=== PATIENT | male | born 1935 | race Caucasian/White ===

== ENCOUNTER → 2017-06-28 | Outpatient (CLI) | payer MEDICARE, BC ==
--- NOTE | 2017-06-28 13:53 | XR ---
EXAMINATION TYPE: XR chest 2V DATE OF EXAM: 06/28/2017 COMPARISON: 10/20/2016 HISTORY: 81-year-old male with cough TECHNIQUE: Frontal and lateral views FINDINGS: The heart is normal size. Mild elongation of the thoracic aorta. Mild diffuse interstitial prominence has a similar appearance. Reticular densities in the lower lungs. No nguyen consolidation or pleural effusion. There is a rounded retrocardiac lucency suggesting a moderate to large hiatal hernia. There is some chronic-appearing deformity to the lower thoracic spine with focal kyphosis here. IMPRESSION: 1. Similar mild interstitial densities and reticular opacities in the lower lungs. This could represe nt underlying interstitial fibrosis. Correlate for other etiologies such as interstitial pneumonitis or atypical infections. 2. Moderate to large hiatal hernia.
== END | disposition home or self-care (01) ==
LOC: RADXRMAIN 12:55
PROVIDERS: ATTEND Internal Medicine
DX: K44.9 Diaphragmatic hernia without obstruction or gangrene (principal); R91.8 Other nonspecific abnormal finding of lung field; R05 Cough
CPT/HCPCS: 71020

== ENCOUNTER 2017-12-21 13:04 | Inpatient (IN) | payer MEDICARE, BC ==
[2017-12-21] MEDS ORDERED: DIPH,PERTUS(ACELL)TETVAC-LF 0.5 ML VIAL IM ONE (13:49)
[2017-12-21 14:47] LABS: Basophils % (A) 0 %; Eosinophils % (A) 0 %; HCT 37.5 % (39.0-53.0); HGB 12.4 gm/dL (13.0-17.5); Lymphocytes # (A) 0.8 k/uL (1.0-4.8); Lymphocytes % (A) 15 %; MCHC 32.9 g/dL (31.0-37.0); MCV 91.2 fL (80.0-100.0); Mean Platelet Volume 8.3; Monocytes # (A) 0.6 k/uL (0-1.0); Monocytes % (A) 11 %; Neutrophils # (A) 3.8 k/uL (1.3-7.7); Neutrophils % (A) 72 %; RBC 4.11 m/uL (4.30-5.90); RDW 12.9 % (11.5-15.5); WBC 5.3 k/uL (3.8-10.6)
[2017-12-21 14:51] LABS: ALT 87 U/L (21-72); AST 147 U/L (17-59); Albumin 4.2 g/dL (3.5-5.0); Alkaline Phosphatase 95 U/L (38-126); Anion Gap 15 mmol/L; Blood Urea Nitrogen 20 mg/dL (9-20); Calcium 10.3 mg/dL (8.4-10.2); Carbon Dioxide 22 mmol/L (22-30); Chloride 104 mmol/L (98-107); Glucose 98 mg/dL (74-99); Potassium 4.7 mmol/L (3.5-5.1); Sodium 141 mmol/L (137-145); Total Bilirubin 0.5 mg/dL (0.2-1.3); Total Protein 7.2 g/dL (6.3-8.2)
--- NOTE | 2017-12-21 14:54 | CT ---
EXAMINATION TYPE: CT brain wo con DATE OF EXAM: 12/21/2017 COMPARISON: NONE HISTORY: Fall today. Visual disturbance. CT DLP: 1123 mGycm Automated exposure control for dose reduction was used. FINDINGS: Changes compatible with chronic sinusitis. Mild generalized degenerative change. Faint periventricula r low attenuation is nonspecific but most typical remote microvascular ischemia. IMPRESSION: NO ACUTE HEMORRHAGE. DEGENERATIVE AND NONSPECIFIC WHITE MATTER CHANGES. IF THERE IS CONCERN FOR ACUTE ISCHEMIA CORRELATE WITH MRI.
[2017-12-21 15:14] LABS: Platelet Count 80 k/uL (150-450); Polychromasia Present
[2017-12-21] MEDS ORDERED: RX INFO: IV CONTRAST WAS GIVEN 1 EACH MISC MISCELLANE PRN (15:20)
--- NOTE | 2017-12-21 15:23 | XR ---
EXAMINATION TYPE: XR hand complete LT DATE OF EXAM: 12/21/2017 CLINICAL HISTORY: Fall injury with pain. TECHNIQUE: Frontal, lateral and oblique images of the left hand are obtained. COMPARISON: None. FINDINGS: Osseous structures are demineralized. There is no acute fracture/dislocation evident in th e left hand. There is moderate to severe joint space loss with mild spurring first interphalangeal denny int. There is some ulnar and dorsal subluxation with advanced joint space loss second DIP joint. Ther e is moderate joint space loss throughout the DIP joints. There is joint space loss and spurring dis faisal scaphoid. Focal soft tissue swelling at the DIP joints is seen. IMPRESSION: There is no acute fracture or dislocation in the left hand. Demineralization and degener ative changes as detailed above.
--- NOTE | 2017-12-21 15:26 | XR ---
EXAMINATION TYPE: XR ribs RT w pa chest xray DATE OF EXAM: 12/21/2017 CLINICAL HISTORY: Fall injury with right sided chest and rib pain. TECHNIQUE: Single frontal view of the chest is obtained. A frontal and oblique images of the right-si ded ribs are acquired. COMPARISON: None FINDINGS: There is persistent low lung volumes with reticular changes seen bilaterally more prominen t diffusely in the left lung. No suspicious new focal airspace opacity, pleural effusion, or pneumoth orax is seen. The cardiac silhouette size is stable and upper limits of normal with ectatic aorta. The osseous structures are demineralized. Dedicated images of right-sided ribs show no acute displaced fracture overlying soft tissue is unrema rkable. IMPRESSION: 1. Low lung volumes and believed chronic interstitial changes. No new suspicious acute pulmonary proc ess. 2. No acute displaced right-sided rib fractures are clearly seen.
[2017-12-21 15:40] LABS: Appearance,Urine Cloudy (Clear); Bacteria,Urine Rare /hpf; Bilirubin,Urine Negative (Negative); Blood,Urine Negative (Negative); Color,Urine Yellow; Glucose,Urine (UA) Negative (Negative); Ketones,Urine Negative (Negative); Leukocyte Esterase,Urine Large (Negative); Nitrite,Urine Negative (Negative); Protein,Urine Trace (Negative); Urobilinogen,Urine <2.0 mg/dL (<2.0); WBC,Urine 67 /hpf (0-5)
[2017-12-21] MEDS ORDERED: cefTRIAXone IN SWFI 1,000 MG/10 ML SYRINGE IVP STA (15:55)
--- NOTE | 2017-12-21 16:00 | CT ---
EXAMINATION TYPE: CT chest angio for PE DATE OF EXAM: 12/21/2017 COMPARISON: Same day chest x-ray right-sided rib x-rays HISTORY: Pain, right side mid chest CT DLP: 255.4 mGycm. Automated Exposure Control for Dose Reduction was Utilized. CONTRAST: CTA scan of the thorax is performed with IV Contrast, patient injected with 80 mL of Visipaque 320, p ulmonary embolism protocol. MIP Images are created on CT scanner and reviewed. FINDINGS: LUNGS: There is background peripheral reticulation and fibrosis with distortion seen bilaterally and diffusely involving upper and lower lungs. Honeycombing in the left lung base is present. There is no suspicious focal airspace opacity, pleural effusion, or pneumothorax seen bilaterally. MEDIASTINUM: There is satisfactory enhancement of the pulmonary artery and its branches, there is no CT evidence for pulmonary embolism. Enlarged right pulmonary artery axial image 64 is present. There are no greater than 1 cm hilar or mediastinal lymph nodes. Prominent but subcentimeter AP window lym ph nodes are present. There is small to tiny pericardial effusion. There is cardiomegaly with moderat e right atrial and right ventricular dilatation. There is large hiatal hernia or intrathoracic stomac h with abnormal twisting. There is no suspicious proximal dilatation of esophagus. There is ectatic a nd mild atherosclerotic change in the descending aorta. There is severe three-vessel coronary artery calcification seen which is noted marker for coronary artery disease. OTHER: Cholecystectomy clips are seen. Nonspecific perinephric fat stranding upper pole level right k idney is partially imaged. Osseous structures are demineralized. There is moderate anterior compressi on T11 level. There are acute nondisplaced fractures involving anterolateral right fifth rib axial im age 83, sixth rib axial image 107 and seventh rib axial image 133. IMPRESSION: 1. No CT evidence for pulmonary embolism. 2. 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 No suspicious acute pulmonary process. CT evidence for pulmonary artery hypertension and right-sided heart enlarge ment. 3. Acute nondisplaced fractures right anterolateral fifth through seventh ribs.
--- NOTE | 2017-12-21 16:04 | ED ---
General Adult HPI - General Chief complaint: Fall Stated complaint: Fall/Abd Pain Time Seen by Provider: 12/21/17 13:41 Source: patient, family, RN notes reviewed Mode of arrival: wheelchair Limitations: no limitations - History of Present Illness Initial comments: This an 82-year-old male presents emergency Department with chief complaint of near-syncope, fall rib injury. Patient states that he was outside walking states that he lost his vision is having was very blurry and he felt slightly dizzy. Patient states he and up on the ground but states he had no head injury no loss conscious. Patient states he had an episode like this in the past. Patient does admit to having some ongoing shortness of breath. Patient did admit that last year he spent several weeks in the hospital secondary to gallbladder, pneumonia and sepsis. Patient states that now he is currently having right-sided rib pain and some pain with deep inspiration. Patient also complains of abrasion, left hand injury. He is unsure when his last tetanus was. Patient denies neck, back pain. He had no prior PE or DVT. Denies any abdominal complaints denies nausea vomiting. - Related Data Home Medications Medication Instructions Recorded Confirmed Aspirin [Adult Low Dose Aspirin EC] 81 mg PO DAILY 10/13/16 12/21/17 Dicyclomine [Bentyl] 10 mg PO BID 12/21/17 12/21/17 Tamsulosin [Flomax] 0.4 mg PO HS 12/21/17 12/21/17 Allergies Allergy/AdvReac Type Severity Reaction Status Date / Time No Known Allergies Allergy Verified 12/21/17 13:39 Review of Systems ROS Statement: Those systems with pertinent positive or pertinent negative responses have been documented in the HPI. ROS Other: All systems not noted in ROS Statement are negative. 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 History of Any Multi-Drug Resistant Organisms: None Reported Past Surgical History: Adenoidectomy, Bowel Resection, Joint Replacement, Tonsillectomy Additional Past Surgical History / Comment(s): Bowel resection for cancer, RT HIP arthroplasty, EGD with bx, colonoscopy Past Anesthesia/Blood Transfusion Reactions: No Reported Reaction Past Psychological History: No Psychological Hx Reported Smoking Status: Former smoker Past Alcohol Use History: None Reported Past Drug Use History: None Reported - Past Family History Father Family Medical History: No Reported History Additional Family Medical History / Comment(s): Father was healthy and lived into his 90's. Mother Family Medical History: No Reported History Additional Family Medical History / Comment(s): Mother was healthy and lived to be 85yrs old. General Exam Limitations: no limitations General appearance: alert, in no apparent distress Head exam: Present: atraumatic, normocephalic, normal inspection Eye exam: Present: normal appearance, PERRL, EOMI. Absent: scleral icterus, conjunctival injection, periorbital swelling ENT exam: Present: normal exam, normal oropharynx, mucous membranes moist Neck exam: Present: normal inspection, full ROM. Absent: tenderness, meningismus, lymphadenopathy Respiratory exam: Present: normal lung sounds bilaterally, chest wall tenderness. Absent: respiratory distress, wheezes, rales, rhonchi, stridor Cardiovascular Exam: Present: regular rate, normal rhythm, normal heart sounds. Absent: systolic murmur, diastolic murmur, rubs, gallop, clicks GI/Abdominal exam: Present: soft, normal bowel sounds. Absent: distended, tenderness, guarding, rebound, rigid Extremities exam: Present: other (Left hand there is small abrasion just proximal to the first digit, mild tenderness full range of motion neurovascular intact remaining extremity exam within normal limits) Back exam: Present: full ROM. Absent: tenderness, muscle spasm, paraspinal tenderness Neurological exam: Present: alert, oriented X3, CN II-XII intact, reflexes normal. Absent: motor sensory deficit Skin exam: Present: warm, dry, intact, normal color. Absent: rash Course Vital Signs 12/21/17 12/21/17 13:11 16:00 Temperature 96.9 F L Pulse Rate 89 82 Respiratory 18 18 Rate Blood Pressure 104/66 129/80 O2 Sat by Pulse 100 99 Oximetry EKG Findings - EKG Comments: EKG Findings:: EKG performed at 14:15 normal sinus rhythm with prolonged QT, inverted T waves noted in V1 and V2 V3, rate of 66 RI 124, QRS 76 QT/QTc 442/463 Medical Decision Making - Medical Decision Making 82-year-old male present emergency from her for near syncope, fall. Patient is found to have multiple rib fractures on CAT scan. There is no evidence of pulmonary embolism. Patient had no head injury no neck pain. Patient had x- ray was reviewed no acute fracture. Patient be admitted for trauma services secondary to fall, pulmonology, hospitalists and anesthesia services. - Lab Data Result diagrams: 12/21/17 14:19 12/21/17 14:19 Lab Results 12/21/17 12/21/17 12/21/17 Range/Units 14:19 14:19 14:19 WBC 5.3 (3.8-10.6) k/uL RBC 4.11 L (4.30-5.90) m/uL Hgb 12.4 L (13.0-17.5) gm/dL Hct 37.5 L (39.0-53.0) % MCV 91.2 (80.0-100.0) fL MCH 30.0 (25.0-35.0) pg MCHC 32.9 (31.0-37.0) g/dL RDW 12.9 (11.5-15.5) % Plt Count 80 L (150-450) k/uL Neutrophils % 72 % Lymphocytes % 15 % Monocytes % 11 % Eosinophils % 0 % Basophils % 0 % Neutrophils # 3.8 (1.3-7.7) k/uL Lymphocytes # 0.8 L (1.0-4.8) k/uL Monocytes # 0.6 (0-1.0) k/uL Eosinophils # 0.0 (0-0.7) k/uL Basophils # 0.0 (0-0.2) k/uL Polychromasia Present D-Dimer 9.23 H (<0.60) mg/L FEU Sodium 141 (137-145) mmol/L Potassium 4.7 (3.5-5.1) mmol/L Chloride 104 (98-107) mmol/L Carbon Dioxide 22 (22-30) mmol/L Anion Gap 15 mmol/L BUN 20 (9-20) mg/dL Creatinine 1.20 (0.66-1.25) mg/dL Est GFR (MDRD) Af Amer >60 (>60 ml/min/1.73 sqM) Est GFR (MDRD) Non-Af 58 (>60 ml/min/1.73 sqM) Glucose 98 (74-99) mg/dL Calcium 10.3 H (8.4-10.2) mg/dL Magnesium 2.0 (1.6-2.3) mg/dL Total Bilirubin 0.5 (0.2-1.3) mg/dL AST 147 H (17-59) U/L ALT 87 H (21-72) U/L Alkaline Phosphatase 95 (38-126) U/L Troponin I (0.000-0.034) ng/mL Total Protein 7.2 (6.3-8.2) g/dL Albumin 4.2 (3.5-5.0) g/dL Urine Color Urine Appearance (Clear) Urine pH (5.0-8.0) Ur Specific Cornell (1.001-1.035) Urine Protein (Negative) Urine Glucose (UA) (Negative) Urine Ketones (Negative) Urine Blood (Negative) Urine Nitrite (Negative) Urine Bilirubin (Negative) Urine Urobilinogen (<2.0) mg/dL Ur Leukocyte Esterase (Negative) Urine WBC (0-5) /hpf Urine Bacteria (None) /hpf 12/21/17 12/21/17 Range/Units 14:19 15:25 WBC (3.8-10.6) k/uL RBC (4.30-5.90) m/uL Hgb (13.0-17.5) gm/dL Hct (39.0-53.0) % MCV (80.0-100.0) fL MCH (25.0-35.0) pg MCHC (31.0-37.0) g/dL RDW (11.5-15.5) % Plt Count (150-450) k/uL Neutrophils % % Lymphocytes % % Monocytes % % Eosinophils % % Basophils % % Neutrophils # (1.3-7.7) k/uL Lymphocytes # (1.0-4.8) k/uL Monocytes # (0-1.0) k/uL Eosinophils # (0-0.7) k/uL Basophils # (0-0.2) k/uL Polychromasia D-Dimer (<0.60) mg/L FEU Sodium (137-145) mmol/L Potassium (3.5-5.1) mmol/L Chloride (98-107) mmol/L Carbon Dioxide (22-30) mmol/L Anion Gap mmol/L BUN (9-20) mg/dL Creatinine (0.66-1.25) mg/dL Est GFR (MDRD) Af Amer (>60 ml/min/1.73 sqM) Est GFR (MDRD) Non-Af (>60 ml/min/1.73 sqM) Glucose (74-99) mg/dL Calcium (8.4-10.2) mg/dL Magnesium (1.6-2.3) mg/dL Total Bilirubin (0.2-1.3) mg/dL AST (17-59) U/L ALT (21-72) U/L Alkaline Phosphatase (38-126) U/L Troponin I <0.012 (0.000-0.034) ng/mL Total Protein (6.3-8.2) g/dL Albumin (3.5-5.0) g/dL Urine Color Yellow Urine Appearance Cloudy (Clear) Urine pH 8.0 (5.0-8.0) Ur Specific Cornell 1.010 (1.001-1.035) Urine Protein Trace H (Negative) Urine Glucose (UA) Negative (Negative) Urine Ketones Negative (Negative) Urine Blood Negative (Negative) Urine Nitrite Negative (Negative) Urine Bilirubin Negative (Negative) Urine Urobilinogen <2.0 (<2.0) mg/dL Ur Leukocyte Esterase Large H (Negative) Urine WBC 67 H (0-5) /hpf Urine Bacteria Rare H (None) /hpf Disposition Clinical Impression: Fall, Multiple rib fractures, UTI (urinary tract infection), Near syncope, Dizziness, Contusion of left hand Disposition: ADMITTED IP TO THIS [facility] Condition: Fair Referrals: Karin Fischer MD [Primary Care Provider] - 1-2 days
[2017-12-21] MEDS ORDERED: HYDROcodone/APAP 5-325MG 1 EACH TAB PO PRN (16:20)
[2017-12-21] MEDS ORDERED: NALOXONE 0.4 MG/ML 1 ML VIAL IV PRN (16:20)
--- NOTE | 2017-12-21 16:55 | P.GSHP ---
History of Present Illness H&P Date: 12/21/17 Chief Complaint: Fall with rib fractures The patient a 82-year-old man who presented to the emergency room after being found under the car in his garage. He had felt weak earlier in the day. He had to go down to his knees. He then went out to the garage and got light headed again and passed out. He doesn't know if he struck anything. He denies any pain in the head, abdomen, extremities. He has pain In the chest with deep breath. Denies cough or shortness of breath. He has had previous syncopal episode. He says this is the third one since he had his gallbladder surgery last fall. 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 History of Any Multi-Drug Resistant Organisms: None Reported Past Surgical History: Adenoidectomy, Bowel Resection, Joint Replacement, Tonsillectomy Additional Past Surgical History / Comment(s): Bowel resection for cancer, RT HIP arthroplasty, EGD with bx, colonoscopy Past Anesthesia/Blood Transfusion Reactions: No Reported Reaction Past Psychological History: No Psychological Hx Reported Smoking Status: Former smoker Past Alcohol Use History: None Reported Past Drug Use History: None Reported - Past Family History Father Family Medical History: No Reported History Additional Family Medical History / Comment(s): Father was healthy and lived into his 90's. Mother Family Medical History: No Reported History Additional Family Medical History / Comment(s): Mother was healthy and lived to be 85yrs old. Medications and Allergies Home Medications Medication Instructions Recorded Confirmed Type Aspirin [Adult Low Dose Aspirin EC] 81 mg PO DAILY 10/13/16 12/21/17 History Dicyclomine [Bentyl] 10 mg PO BID 12/21/17 12/21/17 History Tamsulosin [Flomax] 0.4 mg PO HS 12/21/17 12/21/17 History Allergies Allergy/AdvReac Type Severity Reaction Status Date / Time No Known Allergies Allergy Verified 12/21/17 13:39 Surgical - Exam Osteopathic Statement: *. No significant issues noted on an osteopathic structural exam other than those noted in the History and Physical/Consult. Vital Signs Temp Pulse Resp BP Pulse Ox 96.9 F L 89 18 104/66 100 12/21/17 13:11 12/21/17 13:11 12/21/17 13:11 12/21/17 13:11 12/21/17 13:11 - General well developed, well nourished, no distress - Eyes normal ocular movement - ENT normal pinna, normal nares, normal mucosa - Neck trachea midline, no lymphadectomy - Respiratory normal expansion, normal respiratory effort, clear to auscultation - Cardiovascular Rhythm: other (Occasional ectopic beat) - Abdomen Abdomen: soft, non tender, bowel sounds, no masses, no guarding, no rigid, no rebound, no distended - Integumentary Old bruise left anterior tibial region - Neurologic normal coordination, normal sensation - Psychiatric oriented to time, oriented to person, oriented to place, speech is normal, memory intact Results - Labs 12/21/17 14:19 12/21/17 14:19 Abnormal Lab Results - Last 24 Hours (Table) 12/21/17 12/21/17 12/21/17 Range/Units 14:19 14:19 14:19 RBC 4.11 L (4.30-5.90) m/uL Hgb 12.4 L (13.0-17.5) gm/dL Hct 37.5 L (39.0-53.0) % Plt Count 80 L (150-450) k/uL Lymphocytes # 0.8 L (1.0-4.8) k/uL D-Dimer 9.23 H (<0.60) mg/L FEU Calcium 10.3 H (8.4-10.2) mg/dL AST 147 H (17-59) U/L ALT 87 H (21-72) U/L Urine Protein (Negative) Ur Leukocyte Esterase (Negative) Urine WBC (0-5) /hpf Urine Bacteria (None) /hpf 12/21/17 Range/Units 15:25 RBC (4.30-5.90) m/uL Hgb (13.0-17.5) gm/dL Hct (39.0-53.0) % Plt Count (150-450) k/uL Lymphocytes # (1.0-4.8) k/uL D-Dimer (<0.60) mg/L FEU Calcium (8.4-10.2) mg/dL AST (17-59) U/L ALT (21-72) U/L Urine Protein Trace H (Negative) Ur Leukocyte Esterase Large H (Negative) Urine WBC 67 H (0-5) /hpf Urine Bacteria Rare H (None) /hpf Diabetes panel 12/21/17 Range/Units 14:19 Sodium 141 (137-145) mmol/L Potassium 4.7 (3.5-5.1) mmol/L Chloride 104 (98-107) mmol/L Carbon Dioxide 22 (22-30) mmol/L BUN 20 (9-20) mg/dL Creatinine 1.20 (0.66-1.25) mg/dL Glucose 98 (74-99) mg/dL Calcium 10.3 H (8.4-10.2) mg/dL AST 147 H (17-59) U/L ALT 87 H (21-72) U/L Alkaline Phosphatase 95 (38-126) U/L Total Protein 7.2 (6.3-8.2) g/dL Albumin 4.2 (3.5-5.0) g/dL Calcium panel 12/21/17 Range/Units 14:19 Calcium 10.3 H (8.4-10.2) mg/dL Albumin 4.2 (3.5-5.0) g/dL Pituitary panel 12/21/17 Range/Units 14:19 Sodium 141 (137-145) mmol/L Potassium 4.7 (3.5-5.1) mmol/L Chloride 104 (98-107) mmol/L Carbon Dioxide 22 (22-30) mmol/L BUN 20 (9-20) mg/dL Creatinine 1.20 (0.66-1.25) mg/dL Glucose 98 (74-99) mg/dL Calcium 10.3 H (8.4-10.2) mg/dL Adrenal panel 12/21/17 Range/Units 14:19 Sodium 141 (137-145) mmol/L Potassium 4.7 (3.5-5.1) mmol/L Chloride 104 (98-107) mmol/L Carbon Dioxide 22 (22-30) mmol/L BUN 20 (9-20) mg/dL Creatinine 1.20 (0.66-1.25) mg/dL Glucose 98 (74-99) mg/dL Calcium 10.3 H (8.4-10.2) mg/dL Total Bilirubin 0.5 (0.2-1.3) mg/dL AST 147 H (17-59) U/L ALT 87 H (21-72) U/L Alkaline Phosphatase 95 (38-126) U/L Total Protein 7.2 (6.3-8.2) g/dL Albumin 4.2 (3.5-5.0) g/dL - Imaging CT scan - chest: report reviewed Assessment and Plan (1) Fall Current Visit: Yes Status: Acute Code(s): W19.XXXA - UNSPECIFIED FALL, INITIAL ENCOUNTER SNOMED Code(s): 9305641 (2) Multiple rib fractures Current Visit: Yes Status: Acute Code(s): S22.49XA - MULTIPLE FRACTURES OF RIBS, UNSP SIDE, INIT FOR CLOS FX SNOMED Code(s): 7099266 (3) Near syncope Current Visit: Yes Status: Acute Code(s): R55 - SYNCOPE AND COLLAPSE SNOMED Code(s): 888492947 (4) UTI (urinary tract infection) Current Visit: Yes Status: Acute Code(s): N39.0 - URINARY TRACT INFECTION, SITE NOT SPECIFIED SNOMED Code(s): 71081829 Plan: Patient will be admitted. Good pulmonary toilet and pain control. Dr Fischer will see the patient from a medical standpoint. If the patient is surgically stable tomorrow, we can transfer his admission to medicine. He may need a cardiac workup due to repeated episodes of near syncope. DVT and ulcer prophylaxis. Currently surgically stable.
[2017-12-21] MEDS: KETOROLAC 30 MG/ML 1 ML VIAL IVP SCH (18:46)
[2017-12-21] MEDS: TAMSULOSIN 0.4 MG CAP.ER.24H PO SCH (21:58)
[2017-12-21] MEDS: FAMOTIDINE 20 MG TAB PO SCH (21:59)
[2017-12-22] MEDS: KETOROLAC 30 MG/ML 1 ML VIAL IVP SCH ×5 (00:28→23:45)
[2017-12-22 07:25] LABS: Basophils % (A) 0 %; Eosinophils # (A) 0.1 k/uL (0-0.7); Eosinophils % (A) 1 %; HCT 33.6 % (39.0-53.0); HGB 10.9 gm/dL (13.0-17.5); Lymphocytes % (A) 22 %; MCH 30.6 pg (25.0-35.0); MCHC 32.4 g/dL (31.0-37.0); MCV 94.4 fL (80.0-100.0); Mean Platelet Volume 8.1; Monocytes # (A) 0.5 k/uL (0-1.0); Monocytes % (A) 12 %; Neutrophils # (A) 2.8 k/uL (1.3-7.7); Neutrophils % (A) 61 %; RBC 3.56 m/uL (4.30-5.90); RDW 13.1 % (11.5-15.5); WBC 4.5 k/uL (3.8-10.6)
[2017-12-22 07:32] LABS: Platelet Count 79 k/uL (150-450)
[2017-12-22 07:35] LABS: Calcium 9.4 mg/dL (8.4-10.2); Potassium 4.6 mmol/L (3.5-5.1)
[2017-12-22] MEDS: ASPIRIN 81 MG PO SCH (08:33)
[2017-12-22] MEDS: FAMOTIDINE 20 MG TAB PO SCH (08:33)
[2017-12-22] MEDS: SODIUM CHLORIDE 0.9% 1,000 ML IV SCH ×2 (09:31→21:38)
--- NOTE | 2017-12-22 10:36 | P.PN ---
Subjective Progress Note Date: 12/22/17 Principal diagnosis: Rib fractures, syncopal episode The patient is feeling well. Has some mild pain which is controlled with pain pill. No shortness of breath. Doing well with his incentive spirometry Objective - Vital Signs Vital signs: Vital Signs Temp 98.0 F 12/22/17 07:00 Pulse 62 12/22/17 07:00 Resp 18 12/22/17 07:00 BP 108/55 12/22/17 07:00 Pulse Ox 95 12/22/17 07:00 Intake & Output 12/21/17 12/22/17 12/22/17 18:59 06:59 18:59 Intake Total 590 Output Total 300 Balance 290 Weight 71.668 kg Intake: Oral 590 Output: Urine 300 Other: Voiding Method Toilet Toilet # Voids 1 - Constitutional General appearance: Present: cooperative, no acute distress - EENT ENT: Present: hearing grossly normal - Respiratory Respiratory: bilateral: CTA, negative: wheezing - Cardiovascular Rhythm: regular - Gastrointestinal General gastrointestinal: Present: soft - Labs CBC & Chem 7: 12/22/17 06:56 12/22/17 06:56 Labs: Abnormal Lab Results - Last 24 Hours (Table) 12/21/17 12/21/17 12/21/17 Range/Units 14:19 14:19 14:19 RBC 4.11 L (4.30-5.90) m/uL Hgb 12.4 L (13.0-17.5) gm/dL Hct 37.5 L (39.0-53.0) % Plt Count 80 L (150-450) k/uL Lymphocytes # 0.8 L (1.0-4.8) k/uL D-Dimer 9.23 H (<0.60) mg/L FEU BUN (9-20) mg/dL Creatinine (0.66-1.25) mg/dL Calcium 10.3 H (8.4-10.2) mg/dL AST 147 H (17-59) U/L ALT 87 H (21-72) U/L Urine Protein (Negative) Ur Leukocyte Esterase (Negative) Urine WBC (0-5) /hpf Urine Bacteria (None) /hpf 12/21/17 12/22/17 12/22/17 Range/Units 15:25 06:56 06:56 RBC 3.56 L (4.30-5.90) m/uL Hgb 10.9 L (13.0-17.5) gm/dL Hct 33.6 L (39.0-53.0) % Plt Count 79 L (150-450) k/uL Lymphocytes # (1.0-4.8) k/uL D-Dimer (<0.60) mg/L FEU BUN 30 H (9-20) mg/dL Creatinine 1.39 H (0.66-1.25) mg/dL Calcium (8.4-10.2) mg/dL AST (17-59) U/L ALT (21-72) U/L Urine Protein Trace H (Negative) Ur Leukocyte Esterase Large H (Negative) Urine WBC 67 H (0-5) /hpf Urine Bacteria Rare H (None) /hpf Microbiology - Last 24 Hours (Table) 12/21/17 16:00 Urine Culture - Preliminary Urine,Voided Assessment and Plan (1) Fall Current Visit: Yes Status: Acute Code(s): W19.XXXA - UNSPECIFIED FALL, INITIAL ENCOUNTER SNOMED Code(s): 6136534 (2) Multiple rib fractures Current Visit: Yes Status: Acute Code(s): S22.49XA - MULTIPLE FRACTURES OF RIBS, UNSP SIDE, INIT FOR CLOS FX SNOMED Code(s): 2473443 (3) Near syncope Current Visit: Yes Status: Acute Code(s): R55 - SYNCOPE AND COLLAPSE SNOMED Code(s): 060771017 (4) UTI (urinary tract infection) Current Visit: Yes Status: Acute Code(s): N39.0 - URINARY TRACT INFECTION, SITE NOT SPECIFIED SNOMED Code(s): 63006593 Plan: From a surgical standpoint the patient's having minimal pain from the rib fractures. We'll have him continue the incentive spirometry and pain medication as needed. He is being worked up from a medical standpoint as to why he had the syncopal episode. This may be related to his urinary tract infection. The B1 increased a little bit which could be due to the IV contrast he had for his CTA of the chest yesterday. Care will be turned over to internal medicine
[2017-12-22] MEDS: DICYCLOMINE 10 MG CAP PO PRN (11:00)
--- NOTE | 2017-12-22 12:06 | US ---
EXAMINATION TYPE: US carotid duplex BILAT DATE OF EXAM: 12/22/2017 COMPARISON: NONE CLINICAL HISTORY: near syncope. Syncope EXAM MEASUREMENTS: RIGHT: Peak Systolic Velocity (PSV) cm/sec ----- Right CCA: 82.0 ----- Right ICA: 82.6 ----- Right ECA: 89.0 ICA/CCA ratio: 1.0 RIGHT: End Diastole cm/sec ----- Right CCA: 18.2 ----- Right ICA: 22.4 ----- Right ECA: 8.8 LEFT: Peak Systolic Velocity (PSV) cm/sec ----- Left CCA: 75.4 ----- Left ICA: 66.9 ----- Left ECA: 64.1 ICA/CCA ratio: 0.9 LEFT: End Diastole cm/sec ----- Left CCA: 23.7 ----- Left ICA: 23.0 ----- Left ECA: 6.2 VERTEBRALS (direction of flow): Right Vertebral: Antegrade Left Vertebral: Antegrade Rhythm: Normal Bilateral intimal thickening, no elevated velocities, no significant stenosis. IMPRESSION: 1. Mild intimal thickening without significant flow-limiting stenosis. Criteria for Assigning % of Stenosis / Diameter reduction (Estimation based on the indirect measurements of the internal carotid artery velocities (ICA PSV). 1. Normal (no stenosis)=ICA PSV < 125 cm/s: ratio < 2.0: ICA EDV<40 cm/s. 2. Less than 50% stenosis=ICA PSV < 125 cm/s: ratio < 2.0: ICA EDV<40 cm/s. 3. 50 to 69% stenosis=ICA PSV of 125 to 230 cm/s: ration 2.0 ? 4.0: ICA EDV 40-100 cm/s. 4. Greater than 70% stenosis to near occlusion= ICA PSV > 230 cm/s: ratio > 4.0: ICA EDV > 100 cm/s. 5. Near occlusion= ICA PSV velocities may be low or undetectable: variable ratio and ICA EDV. 6. Total occlusion=unable to detect flow.
--- NOTE | 2017-12-22 12:12 | P.CONS ---
History of Present Illness - Reason for Consult Consult date: 12/22/17 Medical management Requesting physician: Kari Collins - Chief Complaint Near syncopal episodes - History of Present Illness This is a 82-year-old male with a known past medical history of colon cancer with partial colectomy, BPH, and episode of nonsustained ventricle tachycardia, iron deficiency anemia. Patient presents to the hospital after having 2 near syncopal episodes. He reports that he was walking out to the mailbox and became dizzy and lightheaded and just felt weak went down to the ground on his knees and stayed there for a moment. He reports he did not fully lose consciousness. He was able to get back up and return to the garage where he proceeded to go down again. He reports he did not have lost consciousness at either time. However he felt like he was about to pass out. Therefore he came into the emergency room for further evaluation. He denies any chest pain shortness of breath heart palpitations. He states he has been eating and drinking appropriately. Denies any nausea or vomiting. Reports having regular bowel movements. Denies any burning with urination. Patient had a computed tomography scan of the brain showing no acute changes. Did reveal degenerative and nonspecific white matter changes. Patient did have elevated d-dimer admission. CT of the chest was completed showing no evidence of PE. There is moderate to severe diffuse bilateral peripheral interstitial fibrosis. No suspicious acute pulmonary process. Did show pulmonary arterial hypertension and right-sided heart enlargement. Also noted acute nondisplaced fractures of the right anterior lateral fifth through seventh ribs. Patient reports his pain is controlled. He was found have evidence of a UTI started on Rocephin in the emergency room. Patient did have a rise in his creatinine up to 1.39 and BUN 30. He'll be started on IV fluids. This could be related to the dye from the computed tomography scan. EKG shows normal sinus rhythm. Echo from August 2000 showed 17 shows an EF of 50-55% with moderate pulmonary hypertension. Cardiology has been consulted for further evaluation of this near syncopal episodes. Continue telemetry monitoring. Orthostatics have been checked. Carotid Doppler ordered. Patient was admitted initially to surgical service. 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 Gallstone pancreatitis with cholecystectomy small bowel obstruction secondary to adhesions status post exporter laparotomy with lysis of adhesions in October 2016 History of Any Multi-Drug Resistant Organisms: None Reported Past Surgical History: Adenoidectomy, Bowel Resection, Joint Replacement, Tonsillectomy Additional Past Surgical History / Comment(s): Bowel resection for cancer, RT HIP arthroplasty, EGD with bx, colonoscopy, cholecystectomy Past Anesthesia/Blood Transfusion Reactions: No Reported Reaction Past Psychological History: No Psychological Hx Reported Smoking Status: Former smoker Past Alcohol Use History: None Reported Past Drug Use History: None Reported - Past Family History Father Family Medical History: No Reported History Additional Family Medical History / Comment(s): Father was healthy and lived into his 90's. Mother Family Medical History: No Reported History Additional Family Medical History / Comment(s): Mother was healthy and lived to be 85yrs old. Medications and Allergies Home Medications Medication Instructions Recorded Confirmed Type Aspirin [Adult Low Dose Aspirin EC] 81 mg PO DAILY 10/13/16 12/21/17 History Dicyclomine [Bentyl] 10 mg PO BID PRN 12/21/17 12/21/17 History Tamsulosin [Flomax] 0.4 mg PO HS 12/21/17 12/21/17 History Allergies Allergy/AdvReac Type Severity Reaction Status Date / Time No Known Allergies Allergy Verified 12/21/17 13:39 Physical Exam Vitals: Vital Signs Temp Pulse Pulse Resp BP BP Pulse Ox 12/22/17 07:00 98.0 F 62 18 108/55 95 12/21/17 22:45 99.4 F 78 16 116/69 93 L 12/21/17 18:20 71 20 12/21/17 18:04 97.7 F 71 20 159/90 98 12/21/17 17:25 97.7 F 70 18 139/88 95 12/21/17 16:00 82 18 129/80 99 12/21/17 13:11 96.9 F L 89 18 104/66 100 Intake and Output 12/21/17 12/22/17 12/22/17 22:59 06:59 14:59 Intake Total 590 Output Total 300 Balance 290 Intake: Oral 590 Output: Urine 300 Other: Voiding Method Toilet # Voids 1 1 Head normocephalic Neck supple no carotid bruits Lungs clear to auscultation bilaterally no wheezing or crackles Heart regular rate and rhythm S1-S2, no rub or gallop no murmur Abdomen is soft nontender nondistended positive bowel sounds no hepatosplenomegaly Extremities no edema Neuro alert and orientated to 3 Results CBC & Chem 7: 12/22/17 06:56 12/22/17 06:56 Labs: Abnormal Lab Results - Last 24 Hours (Table) 12/21/17 12/21/17 12/21/17 Range/Units 14:19 14:19 14:19 RBC 4.11 L (4.30-5.90) m/uL Hgb 12.4 L (13.0-17.5) gm/dL Hct 37.5 L (39.0-53.0) % Plt Count 80 L (150-450) k/uL Lymphocytes # 0.8 L (1.0-4.8) k/uL D-Dimer 9.23 H (<0.60) mg/L FEU BUN (9-20) mg/dL Creatinine (0.66-1.25) mg/dL Calcium 10.3 H (8.4-10.2) mg/dL AST 147 H (17-59) U/L ALT 87 H (21-72) U/L Urine Protein (Negative) Ur Leukocyte Esterase (Negative) Urine WBC (0-5) /hpf Urine Bacteria (None) /hpf 12/21/17 12/22/17 12/22/17 Range/Units 15:25 06:56 06:56 RBC 3.56 L (4.30-5.90) m/uL Hgb 10.9 L (13.0-17.5) gm/dL Hct 33.6 L (39.0-53.0) % Plt Count 79 L (150-450) k/uL Lymphocytes # (1.0-4.8) k/uL D-Dimer (<0.60) mg/L FEU BUN 30 H (9-20) mg/dL Creatinine 1.39 H (0.66-1.25) mg/dL Calcium (8.4-10.2) mg/dL AST (17-59) U/L ALT (21-72) U/L Urine Protein Trace H (Negative) Ur Leukocyte Esterase Large H (Negative) Urine WBC 67 H (0-5) /hpf Urine Bacteria Rare H (None) /hpf Microbiology - Last 24 Hours (Table) 12/21/17 16:00 Urine Culture - Preliminary Urine,Voided Assessment and Plan Assessment: 1. Recurrent near syncopal episodes with falls. Computed tomography scan of the brain shows no acute changes. PE ruled out on CTA. Continue telemetry monitoring. EKG showing a normal sinus rhythm. Echo from August 2017 shows an EF of 50-55% and moderate pulmonary hypertension. Cardiology consulted. Check orthostatic blood pressures. 2. UTI: Check urine culture. Continue Rocephin 1 g daily. 3. Acute kidney injury with a creatinine up to 1.39 possibly related to the dye from computed tomography scan. We'll place patient on normal saline at 50 mL an hour. Repeat labs in a.m. 4. Elevated d-dimer on admission PE ruled out 5. CTA revealing evidence of pulmonary artery hypertension and right-sided heart enlargement and interstitial fibrosis 6. Right-sided nondisplaced rib fractures. Pain controlled 7. Anemia with known iron deficiency anemia. Hemoglobin at 10.9. Patient is currently off of his iron supplements. We'll check iron studies 8. Minimally elevated LFTs on admission. No abdominal pain. History of cholecystectomy. Repeat labs in a.m. 9. BPH continue Flomax 10. Thrombocytopenia patient's last admission August also had thrombocytopenia due to possible sepsis at that time. Platelets are 79. Repeat labs. Discontinue Pepcid and worsening thrombocytopenia SCDs for DVT prophylaxis
[2017-12-22] MEDS: cefTRIAXone IN SWFI 1,000 MG/10 ML SYRINGE IVP SCH (13:06)
--- NOTE | 2017-12-22 13:37 | P.CRDCN ---
History of Present Illness Consult date: 12/22/17 Consult reason: sycope History of present illness: Mr. Granger is a pleasant 82-year-old male past medical history significant for prostate enlargement, adenocarcinoma of the bowel with resection and chemotherapy 6 yrs ago and gastroesophageal reflux disease. He denies history of coronary artery disease and does not follow with one for any reason. We have been asked to see him in consultation for complaints of dizziness. He states he has been suffering from this multiple times in the last 6 months since having his gallbladder removed. Yesterday he was walking out to get his mail which is approximately 125ft from his house and he felt acutely dizzy with increasing shortness of breath. He lowered himself down to his knees and sat there for a moment and the dizziness passed. He continued on to get his mail and walked back up to the house and into the garage. Once he got in the garage he had another acute onset of dizziness with increased shortness of breath. This time he fell into the car and down on the ground. The dizziness past and he got up and walked into the house. He denies LOC with either event. He denies chest pain, palpitations, diaphoresis, nausea or vomiting. He was found to have non-displaced fractures of right fifth-seventh ribs. At the time of my exam he is seen sitting comfortably in bed with his at the bedside. He denies any further episodes of syncope, dizziness, shortness of breath or falls. He does feel mildly dizzy with any sort of movement however he has been mostly sitting in bed. He is currently being treated for urinary tract infection with Rocephin. EKG reveals sinus mechanism with T-wave inversions in the anterior leads. This is a new finding not represented on old EKG's. Chest xray negative for an acute cardiopulmonary process. CTA negative for PE or aortic aneurysm. Moderate to severe b/l peripheral interstitial fibrosis, pulmonary hypertension and right-sided heart enlargement. Fractures of 5-7ribs, non-displaced. Brain CT negative for acute process with chronic white matter changes. Laboratory data reviewed, hgb 10.9, plt 79, d-dimer 9.23, potassium 4.6, magnesium 2.0, BUN/Cr 30/1.39, cardiac enzymes negative x1. Current cardiac medications include aspirin 81 mg daily. Most recent echocardiogram performed August 2017 reveals preserved left ventricular function with ejection fraction 50-55%, left ventricular hypertrophy , mild aortic valve sclerosis, mild mitral regurgitation, mild to moderate tricuspid regurgitation and moderate pulmonary hypertension with an RVSP of 48.5 mmHg. Review of Systems At the time of my exam: CONSTITUTIONAL: Denies fever. Denies chills. EYES: Denies blurred vision. Denies vision changes. Denies eye pain. EARS, NOSE, MOUTH & THROAT: Denies headache. Denies sore throat. Denies ear pain. CARDIOVASCULAR: Denies chest pain. Denies shortness of breath. Denies orthopnea. Denies PND. Denies palpitations. RESPIRATORY: Denies cough. GASTROINTESTINAL: Denies abdominal pain. Denies diarrhea. Denies constipation. Denies nausea. Denies vomiting. MUSCULOSKELETAL: Denies myalgias. INTEGUMENTARY: Denies pruitis. Denies rash. NEUROLOGIC: Denies numbness. Denies tingling. Denies weakness. PSYCHIATRIC: Denies anxiety. Denies depression. ENDOCRINE: Denies fatigue. Denies weight change. Denies polydipsia. Denies polyurina. GENITOURINARY: Denies burning, hematuria or urgency with micturation. HEMATOLOGIC: Denies history of anemia. Denies bleeding. 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 Gallstone pancreatitis with cholecystectomy small bowel obstruction secondary to adhesions status post exporter laparotomy with lysis of adhesions in October 2016 History of Any Multi-Drug Resistant Organisms: None Reported Past Surgical History: Adenoidectomy, Bowel Resection, Joint Replacement, Tonsillectomy Additional Past Surgical History / Comment(s): Bowel resection for cancer, RT HIP arthroplasty, EGD with bx, colonoscopy, cholecystectomy Past Anesthesia/Blood Transfusion Reactions: No Reported Reaction Past Psychological History: No Psychological Hx Reported Smoking Status: Former smoker Past Alcohol Use History: None Reported Past Drug Use History: None Reported - Past Family History Father Family Medical History: No Reported History Additional Family Medical History / Comment(s): Father was healthy and lived into his 90's. Mother Family Medical History: No Reported History Additional Family Medical History / Comment(s): Mother was healthy and lived to be 85yrs old. Medications and Allergies Home Medications Medication Instructions Recorded Confirmed Type Aspirin [Adult Low Dose Aspirin EC] 81 mg PO DAILY 10/13/16 12/21/17 History Dicyclomine [Bentyl] 10 mg PO BID PRN 12/21/17 12/21/17 History Tamsulosin [Flomax] 0.4 mg PO HS 12/21/17 12/21/17 History Allergies Allergy/AdvReac Type Severity Reaction Status Date / Time No Known Allergies Allergy Verified 12/21/17 13:39 Physical Exam Vitals: Vital Signs Temp Pulse Pulse Resp BP BP Pulse Ox 12/22/17 07:00 98.0 F 62 18 108/55 95 12/21/17 22:45 99.4 F 78 16 116/69 93 L 12/21/17 18:20 71 20 12/21/17 18:04 97.7 F 71 20 159/90 98 12/21/17 17:25 97.7 F 70 18 139/88 95 12/21/17 16:00 82 18 129/80 99 12/21/17 13:11 96.9 F L 89 18 104/66 100 Intake and Output 12/21/17 12/22/17 12/22/17 22:59 06:59 14:59 Intake Total 590 Output Total 300 Balance 290 Intake: Oral 590 Output: Urine 300 Other: Voiding Method Toilet # Voids 1 1 Blood pressure 108/55 heart rate 62 afebrile telemetry tracings reveals sinus mechanism with no evidence of arrhythmia. GENERAL: This is a 82-year-old male in no apparent distress at the time of my examination. HEENT: Head is atraumatic, normocephalic. Pupils are equal, round. Sclerae anicteric. Conjunctivae are clear. Mucous membranes of the mouth are moist. Neck is supple. There is no jugular venous distention. No carotid bruit is heard. LUNGS: Clear to auscultation no wheezes, rales or rhonchi. No chest wall tenderness is noted on palpation or with deep breathing. HEART: Regular rate and rhythm without murmurs, rubs or gallops. S1 and S2 heard. ABDOMEN: Soft, nontender. Bowel sounds are heard. No organomegaly noted. EXTREMITIES: No evidence of peripheral edema and no calf tenderness noted. VASCULAR: Radial and dorsalis pedis pulses palpated, no evidence of clubbing. NEUROLOGIC: Patient is awake, alert and oriented x3. Results 12/22/17 06:56 12/22/17 06:56 Cardiac Enzymes 12/21/17 12/21/17 Range/Units 14:19 14:19 AST 147 H (17-59) U/L Troponin I <0.012 (0.000-0.034) ng/mL CBC 12/21/17 12/22/17 Range/Units 14:19 06:56 WBC 5.3 4.5 (3.8-10.6) k/uL RBC 4.11 L 3.56 L (4.30-5.90) m/uL Hgb 12.4 L 10.9 L (13.0-17.5) gm/dL Hct 37.5 L 33.6 L (39.0-53.0) % Plt Count 80 L 79 L (150-450) k/uL Comprehensive Metabolic Panel 12/21/17 12/22/17 Range/Units 14:19 06:56 Sodium 141 139 (137-145) mmol/L Potassium 4.7 4.6 (3.5-5.1) mmol/L Chloride 104 106 (98-107) mmol/L Carbon Dioxide 22 24 (22-30) mmol/L BUN 20 30 H (9-20) mg/dL Creatinine 1.20 1.39 H (0.66-1.25) mg/dL Glucose 98 92 (74-99) mg/dL Calcium 10.3 H 9.4 (8.4-10.2) mg/dL AST 147 H (17-59) U/L ALT 87 H (21-72) U/L Alkaline Phosphatase 95 (38-126) U/L Total Protein 7.2 (6.3-8.2) g/dL Albumin 4.2 (3.5-5.0) g/dL Current Medications Generic Name Dose Route Start Last Admin Trade Name Freq PRN Reason Stop Dose Admin Hydrocodone Bitart/Acetaminophen 1 each 12/21/17 16:20 12/21/17 17:21 [place] 5-325 PO 1 each Q4HR PRN Administration Moderate Pain Aspirin 81 mg 12/22/17 09:00 12/22/17 08:33 Aspirin PO 81 mg DAILY CLARISA Administration Ceftriaxone Sodium 1,000 mg 02/08/18 12:30 Rocephin IVP Q24HR CLARISA Dicyclomine HCl 10 mg 12/21/17 21:33 12/22/17 11:00 Bentyl PO 10 mg BID PRN Administration GI Upset Sodium Chloride 1,000 mls @ 50 mls/hr 12/22/17 09:15 12/22/17 09:31 Saline 0.9% IV 50 mls/hr .Q20H CLARISA Administration Ketorolac Tromethamine 15 mg 12/21/17 18:00 12/22/17 06:18 Toradol IVP 12/23/17 12:01 15 mg Q6HR CLARISA Administration Miscellaneous Information 1 each 12/21/17 15:20 Rx Info: Iv Contrast Was Given MISCELLANE 12/23/17 15:22 DAILY PRN Per Protocol Naloxone HCl 0.2 mg 12/21/17 16:20 Narcan IV Q2M PRN Opioid Reversal Tamsulosin HCl 0.4 mg 12/21/17 21:45 12/21/17 21:58 Flomax PO 0.4 mg HS CLARISA Administration Intake and Output 12/21/17 12/22/17 12/22/17 22:59 06:59 14:59 Intake Total 590 Output Total 300 Balance 290 Intake: Oral 590 Output: Urine 300 Other: Voiding Method Toilet # Voids 1 1 12/22/17 06:56 12/22/17 06:56 Assessment and Plan Assessment: ASSESSMENT 1. Pre-syncope with EKG changes s/p fall with injury 2. Acute dehydration with positive orthostatic changes 3. Acute kidney injury, secondary to dehydration 4. Thrombocytopenia, chronic 5. Urinary tract infection receiving IV Rocephin 6. Right 5-7 non-displaced rib fracture PLAN Repeat EKG in the morning. Repeat BMP in the morning. Continue to check serial cardiac enzymes. Obtain 2D echocardiogram and doppler study to assess cardiac structure and function. Agree with fluid replacement. Further recommendations will be based upon clinical course. Thank you kindly for this consultation. Nurse Practitioner note has been reviewed, I agree with a documented findings and plan of care. Patient was seen and examined.
--- NOTE | 2017-12-22 15:32 | P.CONS ---
History of Present Illness - Reason for Consult Consult date: 12/22/17 - History of Present Illness This is 82 years old male , was admitted to [facility] secondary to a near syncope episode, and he fell and he had multiple rib fracture, and he was complaining of severe right-sided chest wall pain, patient currently on pain medication [place] 5/325 and he is on Toradol 15 mg every, he denies any side effects of the medictions , and he reported the current regimen helping him to control his pain, cardiology consultation was requested to evaluate syncope ,and pain management consultation , was requesting regarding his chest wall pain/rip pain Past Medical History Past Medical History: Cancer, GERD/Reflux, Prostate Disorder Additional Past Medical History / Comment(s): 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 Gallstone pancreatitis with cholecystectomy small bowel obstruction secondary to adhesions status post exporter laparotomy with lysis of adhesions in October 2016 History of Any Multi-Drug Resistant Organisms: None Reported Past Surgical History: Adenoidectomy, Bowel Resection, Joint Replacement, Tonsillectomy Additional Past Surgical History / Comment(s): Bowel resection for cancer, RT HIP arthroplasty, EGD with bx, colonoscopy, cholecystectomy Past Anesthesia/Blood Transfusion Reactions: No Reported Reaction Past Psychological History: No Psychological Hx Reported Smoking Status: Former smoker Past Alcohol Use History: None Reported Past Drug Use History: None Reported - Past Family History Father Family Medical History: No Reported History Additional Family Medical History / Comment(s): Father was healthy and lived into his 90's. Mother Family Medical History: No Reported History Additional Family Medical History / Comment(s): Mother was healthy and lived to be 85yrs old. Medications and Allergies Home Medications Medication Instructions Recorded Confirmed Type Aspirin [Adult Low Dose Aspirin EC] 81 mg PO DAILY 10/13/16 12/21/17 History Dicyclomine [Bentyl] 10 mg PO BID PRN 12/21/17 12/21/17 History Tamsulosin [Flomax] 0.4 mg PO HS 12/21/17 12/21/17 History Allergies Allergy/AdvReac Type Severity Reaction Status Date / Time No Known Allergies Allergy Verified 12/21/17 13:39 Physical Exam Vitals: Vital Signs Temp Pulse Pulse Resp BP BP BP 02/08/18 14:34 98.7 F 58 L 20 12/22/17 13:13 104/66 75/54 12/22/17 07:00 98.0 F 62 18 12/21/17 22:45 99.4 F 78 16 12/21/17 18:20 71 20 12/21/17 18:04 97.7 F 71 20 12/21/17 17:25 97.7 F 70 18 139/88 12/21/17 16:00 82 18 129/80 BP BP Pulse Ox 12/22/17 14:34 99/55 95 12/22/17 13:13 109/64 12/22/17 07:00 108/55 95 12/21/17 22:45 116/69 93 L 12/21/17 18:20 12/21/17 18:04 159/90 98 12/21/17 17:25 95 12/21/17 16:00 99 Intake and Output 12/22/17 12/22/17 12/22/17 06:59 14:59 22:59 Other: # Voids 1 3 Physical Examinations : 1-Constitutional : Cooperative , not in acute distress . 2-HEENT : nech ; supple , no Lymphadenopathy , no Thyromegaly , :eyes , no icterus, no photophobia . ENT : , normal oropharynx , no Thrush 3- Respiratory : Chest clear to auscultations Bilaterally , no wheezing . 4- Cardiovascular : regular rate and rhythem , S1 , S2 , no S3 , no S4. Tenderness over the right side of the chest 5- Gastrointestinal: abdomen soft no tenderness , no organomegally . 6- Genitourinary : Defferred . 7-Integumentary : No cellulitis , no ulcers , normal skin turgor , no cyanotic . 8- neurologic : Cranial nerve II to XII intact , no focal neurological deffecit 9-psychatric : alert , oriented X 3 , appropriate affect , intact judgment and insight . 10-Lymphatic : no Lymphadenopathy. 11- musculoskeltal: Lumber spine moter stegnth lower extremities ,thigh and legs 5/5 Right side , 5/5 Left side Results CBC & Chem 7: 12/22/17 06:56 12/22/17 06:56 Labs: Abnormal Lab Results - Last 24 Hours (Table) 12/21/17 12/22/17 12/22/17 Range/Units 15:25 06:56 06:56 RBC 3.56 L (4.30-5.90) m/uL Hgb 10.9 L (13.0-17.5) gm/dL Hct 33.6 L (39.0-53.0) % Plt Count 79 L (150-450) k/uL BUN 30 H (9-20) mg/dL Creatinine 1.39 H (0.66-1.25) mg/dL Urine Protein Trace H (Negative) Ur Leukocyte Esterase Large H (Negative) Urine WBC 67 H (0-5) /hpf Urine Bacteria Rare H (None) /hpf Microbiology - Last 24 Hours (Table) 12/21/17 16:00 Urine Culture - Preliminary Urine,Voided Assessment and Plan Plan: Assessment AND PLAN= acute chest wall pain, secondary to rib fractures, pain managed well with the current regimen recommend continue the current medication , recommend change Toradol IV to Motrin 600 mg every 8 hours before discharge Time with Patient: Greater than 30
[2017-12-22 17:18] LABS: Iron Saturation 34.35 (15.00-50.00)
--- NOTE | 2017-12-22 17:19 | ECHOF ---
Referral Reason:htn MEASUREMENTS -------- HEIGHT: 177.8 cm WEIGHT: 71.7 kg BP: 108/55 RVIDd: 3.8 cm (< 3.3) IVSd: 1.1 cm (0.6 - 1.1) LVIDd: 3.5 cm (3.9 - 5.3) LVPWd: 1.1 cm (0.6 - 1.1) IVSs: 1.6 cm LVIDs: 2.8 cm LVPWs: 1.3 cm Ao Diam: 3.4 cm (2.0 - 3.7) AV Cusp: 1.6 cm (1.5 - 2.6) EPSS: 0.6 cm MV E Jerman: 0.96 m/s MV DecT: 380 ms MV A Jerman: 0.99 m/s MV E/A Ratio: 0.97 RAP: 5.00 mmHg RVSP: 58.32 mmHg MV EF SLOPE: 39.60 mm/s (70 - 150) MV EXCURSION: 1.87 cm (> 18.000) FINDINGS -------- Sinus rhythm. This was a technically adequate study. The left ventricular size is normal. There is borderline concentric left ventricular hypertrophy. Overall left ventricular systolic function is normal with, an EF between 55 - 60 %. The right ventricle is mild to moderately enlarged. The left atrial size is normal. The right atrium is normal in size. Aortic valve is trileaflet and is mildly thickened. The mitral valve leaflets are mildly thickened. Mild mitral regurgitation is present. Mild tricuspid regurgitation present. There is moderate pulmonary hypertension. The right ventric ular systolic pressure, as measured by Doppler, is 58.32mmHg. Trace/mild (physiologic) pulmonic regurgitation. The aortic root size is normal. IVC Not well visulized. There is no pericardial effusion. CONCLUSIONS -------- 1. Sinus rhythm. 2. This was a technically adequate study. 3. The left ventricular size is normal. 4. There is borderline concentric left ventricular hypertrophy. 5. Overall left ventricular systolic function is normal with, an EF between 55 - 60 %. 6. The right ventricle is mild to moderately enlarged. 7. The left atrial size is normal. 8. Aortic valve is trileaflet and is mildly thickened. 9. The mitral valve leaflets are mildly thickened. 10. Mild mitral regurgitation is present. 11. Mild tricuspid regurgitation present. 12. There is moderate pulmonary hypertension. 13. Trace/mild (physiologic) pulmonic regurgitation. 14. The aortic root size is normal. 15. IVC Not well visulized. 16. There is no pericardial effusion. SSRS DEVELOPER: Juvenal Campos RDCS
--- NOTE | 2017-12-22 17:47 | P.CNPUL ---
History of Present Illness Consult date: 12/22/17 Reason for consult: chest pain Chief complaint: Chest pain, rib fractures History of present illness: Patient seen and evaluated examined in the medical floor patient does have some complaint of chest pain on the left side after the fall he described his been having near syncopal episode for the last several week last episode was a few days ago prior to that was 2 weeks ago this time he fell down while he was walking, he lost his vision is having was very blurry and he felt slightly dizzy. Patient states he and up on the ground but states he had no head injury no loss conscious. Patient states he had an episode like this in the past. Patient does admit to having some ongoing shortness of breath. Patient did admit that last year he spent several weeks in the hospital secondary to gallbladder, pneumonia and sepsis. Patient states that now he is currently having right-sided rib pain and some pain with deep inspiration. Patient also complains of abrasion, left hand injury. He is unsure when his last tetanus was. Patient denies neck, back pain. Further workup and evaluation revealed suspicious rib fractures on the right side, however chest x-ray and dedicated rib x-rays failed to reveal, computed tomography scan of the chest revealed pulmonary fibrosis bilaterally with honeycombing, and large right-sided PA vasculature noted cardiomegaly with a right atrial and right ventricular dilatation suggestive of pulmonary hypertension, compression fracture at T11 was noted as well, computed tomography scan however revealed right fifth to seventh rib fracture no PE was noted a red echocardiogram revealed moderate pulmonary hypertension however adequate ejection fraction of 55%, duplex ultrasound of carotid failed to reveal any significant stenosis at the roommate' s changes were noted Review of Systems All systems: negative Past Medical History Past Medical History: Cancer, GERD/Reflux, Prostate Disorder Additional Past Medical History / Comment(s): 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 Gallstone pancreatitis with cholecystectomy small bowel obstruction secondary to adhesions status post exporter laparotomy with lysis of adhesions in October 2016 History of Any Multi-Drug Resistant Organisms: None Reported Past Surgical History: Adenoidectomy, Bowel Resection, Joint Replacement, Tonsillectomy Additional Past Surgical History / Comment(s): Bowel resection for cancer, RT HIP arthroplasty, EGD with bx, colonoscopy, cholecystectomy Past Anesthesia/Blood Transfusion Reactions: No Reported Reaction Past Psychological History: No Psychological Hx Reported Smoking Status: Former smoker Past Alcohol Use History: None Reported Past Drug Use History: None Reported - Past Family History Father Family Medical History: No Reported History Additional Family Medical History / Comment(s): Father was healthy and lived into his 90's. Mother Family Medical History: No Reported History Additional Family Medical History / Comment(s): Mother was healthy and lived to be 85yrs old. Medications and Allergies Home Medications Medication Instructions Recorded Confirmed Type Aspirin [Adult Low Dose Aspirin EC] 81 mg PO DAILY 10/13/16 12/21/17 History Dicyclomine [Bentyl] 10 mg PO BID PRN 12/21/17 12/21/17 History Tamsulosin [Flomax] 0.4 mg PO HS 12/21/17 12/21/17 History Allergies Allergy/AdvReac Type Severity Reaction Status Date / Time No Known Allergies Allergy Verified 12/21/17 13:39 Physical Exam Vitals: Vital Signs Temp Pulse Resp BP BP BP BP 12/22/17 14:34 98.7 F 58 L 20 99/55 12/22/17 13:13 104/66 75/54 109/64 12/22/17 07:00 98.0 F 62 18 108/55 12/21/17 22:45 99.4 F 78 16 116/69 12/21/17 18:20 71 20 12/21/17 18:04 97.7 F 71 20 159/90 Pulse Ox 12/22/17 14:34 95 12/22/17 13:13 12/22/17 07:00 95 12/21/17 22:45 93 L 12/21/17 18:20 12/21/17 18:04 98 Intake and Output 12/22/17 12/22/17 12/22/17 06:59 14:59 22:59 Other: # Voids 1 3 Limitations: no limitations General appearance: alert, in no apparent distress Head exam: Present: atraumatic, normocephalic, normal inspection Eye exam: Present: normal appearance, PERRL, EOMI. Absent: scleral icterus, conjunctival injection, periorbital swelling ENT exam: Present: normal exam, normal oropharynx, mucous membranes moist Neck exam: Present: normal inspection, full ROM. Absent: tenderness, meningismus, lymphadenopathy Respiratory exam: Present: normal lung sounds bilaterally, chest wall tenderness. Absent: respiratory distress, wheezes, rales, rhonchi, stridor Cardiovascular Exam: Present: regular rate, normal rhythm, normal heart sounds. Absent: systolic murmur, diastolic murmur, rubs, gallop, clicks GI/Abdominal exam: Present: soft, normal bowel sounds. Absent: distended, tenderness, guarding, rebound, rigid Extremities exam: Present: other (Left hand there is small abrasion just proximal to the first digit, mild tenderness full range of motion neurovascular intact remaining extremity exam within normal limits) Back exam: Present: full ROM. Absent: tenderness, muscle spasm, paraspinal tenderness Neurological exam: Present: alert, oriented X3, CN II-XII intact, reflexes normal. Absent: motor sensory deficit Skin exam: Present: warm, dry, intact, normal color. Absent: rash Results - Laboratory Findings CBC and BMP: 12/22/17 06:56 12/22/17 06:56 PT/INR, D-dimer D-Dimer 9.23 mg/L FEU (<0.60) H 12/21/17 14:19 Abnormal lab findings: Abnormal Labs 12/21/17 12/21/17 12/21/17 14:19 14:19 14:19 RBC 4.11 L Hgb 12.4 L Hct 37.5 L Plt Count 80 L Lymphocytes # 0.8 L D-Dimer 9.23 H BUN Creatinine Calcium 10.3 H AST 147 H ALT 87 H Urine Protein Ur Leukocyte Esterase Urine WBC Urine Bacteria 12/21/17 12/22/17 12/22/17 15:25 06:56 06:56 RBC 3.56 L Hgb 10.9 L Hct 33.6 L Plt Count 79 L Lymphocytes # D-Dimer BUN 30 H Creatinine 1.39 H Calcium AST ALT Urine Protein Trace H Ur Leukocyte Esterase Large H Urine WBC 67 H Urine Bacteria Rare H - Diagnostic Findings Chest x-ray: report reviewed, image reviewed CT scan - chest: report reviewed, image reviewed (As noted above) Assessment and Plan Assessment: Status post fall with right 56 and seventh rib fracture Pulmonary contusion versus pneumonia right-sided UTI Chronic thrombocytopenia 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 Moderate pulmonary hypertension likely related to above Suspect ongoing intermittent chronic hypoxia patient would require nocturnal pulse oximetry and maybe supplemental oxygen Near syncope of unclear etiology 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 Plan: Gentle rehydration for correction of BUN/creatinine Evaluate patient for nocturnal desaturation and possibly home O2 Agree with IV Rocephin for now however if patient remains afebrile and white cell count remains normal can be stopped next 24 hours patient can be switched to oral antibiotics for UTI to finish 5-7 day therapy Further evaluation of pulmonary fibrosis and intervention on outpatient setting Maintain patient on DVT and peptic ulcer disease prophylaxis Suspect will be hypertension is related to pulmonary fibrosis we'll monitor and observe for now Time with Patient: Greater than 30
[2017-12-22 18:47] VITALS: RESP 16
[2017-12-22] MEDS: TAMSULOSIN 0.4 MG CAP.ER.24H PO SCH (20:14)
[2017-12-23] MEDS: DICYCLOMINE 10 MG CAP PO PRN (01:24)
[2017-12-23] MEDS: KETOROLAC 30 MG/ML 1 ML VIAL IVP SCH (05:18)
[2017-12-23] MEDS: SODIUM CHLORIDE 0.9% 1,000 ML IV SCH ×2 (05:19→09:11)
[2017-12-23 07:52] LABS: Basophils % (A) 0 %; Eosinophils # (A) 0.1 k/uL (0-0.7); Eosinophils % (A) 3 %; HCT 31.1 % (39.0-53.0); HGB 9.9 gm/dL (13.0-17.5); Lymphocytes # (A) 0.9 k/uL (1.0-4.8); Lymphocytes % (A) 25 %; MCH 29.5 pg (25.0-35.0); MCHC 31.8 g/dL (31.0-37.0); MCV 92.9 fL (80.0-100.0); Mean Platelet Volume 8.6; Monocytes # (A) 0.4 k/uL (0-1.0); Monocytes % (A) 10 %; Neutrophils # (A) 2.1 k/uL (1.3-7.7); Neutrophils % (A) 58 %; RBC 3.35 m/uL (4.30-5.90); RDW 13.2 % (11.5-15.5); WBC 3.6 k/uL (3.8-10.6)
[2017-12-23 08:04] VITALS: BP 115/72; PULSE 60; TEMP 97.5
[2017-12-23 08:14] LABS: ALT 51 U/L (21-72); AST 45 U/L (17-59); Alkaline Phosphatase 71 U/L (38-126); Anion Gap 9 mmol/L; Blood Urea Nitrogen 27 mg/dL (9-20); Calcium 8.6 mg/dL (8.4-10.2); Carbon Dioxide 22 mmol/L (22-30); Chloride 110 mmol/L (98-107); Glucose 89 mg/dL (74-99); Potassium 4.6 mmol/L (3.5-5.1); Sodium 141 mmol/L (137-145); Total Bilirubin 0.4 mg/dL (0.2-1.3); Total Protein 5.7 g/dL (6.3-8.2)
[2017-12-23 08:16] LABS: Platelet Count 60 k/uL (150-450)
[2017-12-23] MEDS: ASPIRIN 81 MG PO SCH (09:11)
[2017-12-23] MEDS: cefTRIAXone IN SWFI 1,000 MG/10 ML SYRINGE IVP SCH (09:11)
--- NOTE | 2017-12-23 12:01 | P.PN ---
Progress Note - Text Progress Note Date: 12/23/17 The patient is surgically stable. Will transfer admission to Dr Fischer. I spoke with Dr Fischer on the phone and he accepts the patient
--- NOTE | 2017-12-23 12:13 | P.PN ---
Subjective Progress Note Date: 12/23/17 Mr. Granger is seen and examined today resting comfortably in bed. He is in no acute distress. He denies having had any symptoms of dizziness, near syncope or syncope. He complains only of tight thoracic pain secondary to rib fractures. Telemetry tracings have been unremarkable with no evidence of arrhythmia. Repeat EKG this morning again shows T-wave inversions in anterior leads. Cardiac enzymes were unremarkable. Echocardiogram shows preserved LV function with EF 55-60% with mild to moderate RV, mildly thickened aortic valve, mildly thickened mitral valve and moderate pulmonary hypertension. Yesterday he was orthostatic positive and received IV fluids, repeat orthostatics were negative last night. Potassium 4.6, creatinine 1.3, hemoglobin 9.9. Objective - Vital Signs Vital signs: Vital Signs Temp 97.5 F L 12/23/17 07:00 Pulse 60 12/23/17 07:00 Resp 16 12/23/17 07:00 BP 115/72 12/23/17 07:00 Pulse Ox 96 12/23/17 07:00 Intake & Output 12/22/17 12/23/17 12/23/17 18:59 06:59 18:59 Intake Total 2089 Balance 2089 Intake: Intake, IV Titration 1500 Amount Sodium Chloride 0.9% 1, 1500 000 ml @ 125 mls/hr IV . [facility] Rx#:[id number] Oral 590 Other: Voiding Method Toilet Toilet Toilet # Voids 3 2 - Exam Blood pressure 115/72 heart rate 68 afebrile GENERAL: Well-appearing, well-nourished and in no acute distress. NECK: Supple without JVD or thyromegaly. LUNGS: Breath sounds clear to auscultation bilaterally. Respiration equal and unlabored. No wheezes, rales or rhonchi. HEART: Regular rate and rhythm without murmurs, rubs or gallops. S1 and S2 heard. EXTREMITIES: Normal range of motion, no edema. No clubbing or cyanosis. Peripheral pulses intact and strong. - Labs CBC & Chem 7: 12/23/17 07:11 12/23/17 07:11 Labs: Abnormal Lab Results - Last 24 Hours (Table) 12/22/17 12/23/17 12/23/17 Range/Units 06:56 07:11 07:11 WBC 3.6 L (3.8-10.6) k/uL RBC 3.35 L (4.30-5.90) m/uL Hgb 9.9 L (13.0-17.5) gm/dL Hct 31.1 L (39.0-53.0) % Plt Count 60 L (150-450) k/uL Lymphocytes # 0.9 L (1.0-4.8) k/uL Chloride 110 H (98-107) mmol/L BUN 27 H (9-20) mg/dL Creatinine 1.33 H (0.66-1.25) mg/dL Ferritin 21.9 L (22.0-322.0) ng/mL Total Protein 5.7 L (6.3-8.2) g/dL Albumin 3.0 L (3.5-5.0) g/dL Microbiology - Last 24 Hours (Table) 12/21/17 16:00 Urine Culture - Final Urine,Voided Assessment and Plan Assessment: ASSESSMENT 1. Pre-syncope with EKG changes s/p fall with injury 2. Acute dehydration with positive orthostatic changes, resolved 3. Acute kidney injury, secondary to dehydration. Improving. 4. Thrombocytopenia, chronic 5. Urinary tract infection receiving IV Rocephin 6. Right 5-7 non-displaced rib fracture PLAN Mr. Granger is stable from a cardiac perspective. He will be set-up for stress testing as an outpatient. This appointment has been made for Dec 29 at 0715 and follow-up with Dr. Mcadams Jan 02 at 0900. At that time ongoing discussion regarding possible loop recorder implant if stress testing is negative. Nurse Practitioner note has been reviewed, I agree with a documented findings and plan of care. Patient was seen and examined.
--- NOTE | 2017-12-23 13:02 | P.DS ---
Providers Date of admission: 12/23/17 08:38 Expected date of discharge: 12/23/17 Attending physician: Kari Collins Consults: 12/21/17 16:20 Consult Physician Stat Consulting Provider: Rai Álvarez Consult Reason/Comments: Multiple rib fracture, shortness breath Do you want consulting provider notified?: Yes Consult Physician Stat Consulting Provider: Karin Fischer Consult Reason/Comments: medical management - Fall, near-syncope, multiple rib fractures right side, Do you want consulting provider notified?: Yes 12/21/17 16:24 Consult Physician Urgent Consulting Provider: Anesthesia,Services Consult Reason/Comments: pain management Do you want consulting provider notified?: Yes 12/22/17 10:54 Consult Physician Routine Consulting Provider: Charan Tolbert Consult Reason/Comments: near syncope Do you want consulting provider notified?: Yes Primary care physician: Karin Fischer [facility] Course: Diagnoses on discharge: 1. Recurrent near syncopal episodes with falls. Computed tomography scan of the brain shows no acute changes. PE ruled out on CTA. Continue telemetry monitoring. EKG showing a normal sinus rhythm. Echo from August 2017 shows an EF of 50-55% and moderate pulmonary hypertension. Cardiology consulted. Check orthostatic blood pressures. 2. UTI: Check urine culture. Continue Rocephin 1 g daily. 3. Acute kidney injury with a creatinine up to 1.39 possibly related to the dye from computed tomography scan. We'll place patient on normal saline at 50 mL an hour. Repeat labs in a.m. 4. Elevated d-dimer on admission PE ruled out 5. CTA revealing evidence of pulmonary artery hypertension and right-sided heart enlargement and interstitial fibrosis 6. Right-sided nondisplaced rib fractures. Pain controlled 7. Anemia with known iron deficiency anemia. Hemoglobin at 10.9. Patient is currently off of his iron supplements. We'll check iron studies 8. Minimally elevated LFTs on admission. No abdominal pain. History of cholecystectomy. Repeat labs in a.m. 9. BPH continue Flomax 10. Thrombocytopenia patient's last admission August also had thrombocytopenia due to possible sepsis at that time. Platelets are 79. Hospital course: This is a 82-year-old male with a known past medical history of colon cancer with partial colectomy, BPH, and episode of nonsustained ventricle tachycardia, iron deficiency anemia. Patient presents to the hospital after having 2 near syncopal episodes. He reports that he was walking out to the mailbox and became dizzy and lightheaded and just felt weak went down to the ground on his knees and stayed there for a moment. He reports he did not fully lose consciousness. He was able to get back up and return to the garage where he proceeded to go down again. He reports he did not have lost consciousness at either time. However he felt like he was about to pass out. Therefore he came into the emergency room for further evaluation. He denies any chest pain shortness of breath heart palpitations. He states he has been eating and drinking appropriately. Denies any nausea or vomiting. Reports having regular bowel movements. Denies any burning with urination. Patient had a computed tomography scan of the brain showing no acute changes. Did reveal degenerative and nonspecific white matter changes. Patient did have elevated d-dimer admission. CT of the chest was completed showing no evidence of PE. There is moderate to severe diffuse bilateral peripheral interstitial fibrosis. No suspicious acute pulmonary process. Did show pulmonary arterial hypertension and right-sided heart enlargement. Also noted acute nondisplaced fractures of the right anterior lateral fifth through seventh ribs. Patient reports his pain is controlled. He was found have evidence of a UTI started on Rocephin in the emergency room. Patient did have a rise in his creatinine up to 1.39 and BUN 30. He'll be started on IV fluids. This could be related to the dye from the computed tomography scan. EKG shows normal sinus rhythm. Echo from August 2000 showed 17 shows an EF of 50-55% with moderate pulmonary hypertension. Cardiology has been consulted for further evaluation of this near syncopal episodes. Continue telemetry monitoring. Orthostatics have been checked. Carotid Doppler ordered. Patient was admitted initially to surgical service. on 12/23/2017 patient is alert and oriented 3 he is feeling better he was able to ambulate without difficulty and without any dizziness or feeling of presyncope, he was evaluated by cardiology echo cardiogram revealed evidence of [id number] pulmonary hypertension, carotid Doppler was negative for any significant stenosis, patient was cleared by cardiology for discharge, he will be followed by cardiology as outpatient for stress test and possible loop recorder, Will follow up in our office in 1-2 weeks Patient Condition at Discharge: Fair Plan - Discharge Summary New Discharge Prescriptions: New Cefuroxime Axetil [Ceftin] 500 mg PO BID #10 tab HYDROcodone/APAP 5-325MG [Bonifay 5-325] 1 each PO Q4HR PRN tab PRN Reason: Moderate Pain Continue Aspirin [Adult Low Dose Aspirin EC] 81 mg PO DAILY Tamsulosin [Flomax] 0.4 mg PO HS Dicyclomine [Bentyl] 10 mg PO BID PRN PRN Reason: Gi Upset Discharge Medication List Aspirin [Adult Low Dose Aspirin EC] 81 mg PO DAILY 10/13/16 [History] Dicyclomine [Bentyl] 10 mg PO BID PRN 12/21/17 [History] Tamsulosin [Flomax] 0.4 mg PO HS 12/21/17 [History] Cefuroxime Axetil [Ceftin] 500 mg PO BID #10 tab 12/23/17 [Rx] HYDROcodone/APAP 5-325MG [Bonifay 5-325] 1 each PO Q4HR PRN tab 12/23/17 [Rx] Follow up Appointment(s)/Referral(s): Mark Mcadams MD [STAFF PHYSICIAN] - 1 Week (Lexiscan stress test scheduled Dec 29 at 715 am. Nothing to eat after midnight Tuesday. Appointment with Dr. Mcadams Jan 02 at 9 am. The office will call with instructions for stress test. ) Karin Fischer MD [Primary Care Provider] - 1-2 days
== END 2017-12-23 17:04 | disposition home or self-care (01) | DRG 184 ==
LOC: EC 13:04 → 3OBS 16:11 → 5MS5E 17:16 → OBSVTOIN 12-23 08:38
PROVIDERS: ADMIT Surgery; ATTEND Surgery
DX: S22.41XA Multiple fractures of ribs, right side, initial encounter for closed fracture (principal); N17.9 Acute kidney failure, unspecified; D69.6 Thrombocytopenia, unspecified; I27.21 Secondary pulmonary arterial hypertension; I08.3 Combined rheumatic disorders of mitral, aortic and tricuspid valves; J84.10 Pulmonary fibrosis, unspecified; N39.0 Urinary tract infection, site not specified; I95.1 Orthostatic hypotension; E86.0 Dehydration; R79.1 Abnormal coagulation profile; S60.222A Contusion of left hand, initial encounter; D50.9 Iron deficiency anemia, unspecified; K21.9 Gastro-esophageal reflux disease without esophagitis; N40.0 Benign prostatic hyperplasia without lower urinary tract symptoms; T50.8X5A Adverse effect of diagnostic agents, initial encounter; Z85.038 Personal history of other malignant neoplasm of large intestine; Z90.89 Acquired absence of other organs; Z86.12 Personal history of poliomyelitis; Z90.49 Acquired absence of other specified parts of digestive tract; Z79.82 Long term (current) use of aspirin; Z87.891 Personal history of nicotine dependence; Z92.21 Personal history of antineoplastic chemotherapy; Z96.641 Presence of right artificial hip joint; W19.XXXA Unspecified fall, initial encounter
CPT/HCPCS: 36415; 70450; 71275; 80048; 80053; 81001; 82728; 83540; 83550; 83735; 84484; 85025; 85379; 87086; 90471; 90715; 93005; 93306; 93880; 96374; 99285

== ENCOUNTER → 2018-06-28 | Outpatient (CLI) | payer BC, MEDICARE ==
--- NOTE | 2018-06-28 17:42 | CT ---
EXAMINATION TYPE: CT ChestAbdPelvis w con DATE OF EXAM: 06/28/2018 INDICATION: Colon CA COMPARISON: 08/19/2017 CT abdomen pelvis, CTA chest 12/21/2017 CT DLP: 872.6 mGycm CONTRAST: Performed with Oral Contrast and with IV Contrast, patient injected with 100 mL of Isovue 300. TECHNIQUE: Axial images at 5 mm thick sections. Reconstructed images in the coronal plane. Delayed images through the kidneys. FINDINGS: CT CHEST: Portion of the thyroid visualized is normal. No suspicious lung nodules or focal infiltrates are present. Emphysematous changes are present. No enlarged mediastinal or hilar adenopathy is evident. The ascending aorta diameter at the level of the main pulmonary artery is 3.5 cm. The main pulmonary artery diameter at the bifurcation is 2.9 cm. There is a large hiatal hernia containing contrast. Aorta is tortuous. CT ABDOMEN: Liver: Normal Spleen: Normal Pancreas: Normal Adrenal glands: The adrenal glands are normal. Gallbladder: Not identified. Correlate with surgical history. This could be contracted or surgically absent. Kidneys: No masses are evident. No hydronephrosis is present. No cysts are present. Delayed images were obtained through the kidneys, which remain unremarkable. Aorta: Vascular calcification is within the aorta. Inferior vena cava: Normal. CT PELVIS: Loops of bowel within the abdomen and pelvis are normal. There are loops of bowel which are incom pletely distended or lack oral contrast limiting their evaluation. Fecal debris is within the colon. Anastomosis site is not identified. Appendix: Normal as visualized. Urinary bladder: Normal. Genitourinary structures: Prostate is prominent. Osseous structures: No suspicious lytic or sclerotic lesions. There is a right hip prosthesis. Facet degenerative changes are present within the lumbar spine. IMPRESSIONS: 1. No suspicious changes to suggest recurrent or metastatic colon. 2. Large hiatal hernia.
== END | disposition home or self-care (01) ==
LOC: RADCTMAIN 10:56
PROVIDERS: ATTEND Internal Medicine Hematology & Oncology
DX: Z03.89 Encounter for observation for other suspected diseases and conditions ruled out (principal); C18.7 Malignant neoplasm of sigmoid colon; K44.9 Diaphragmatic hernia without obstruction or gangrene
CPT/HCPCS: 82565; 84520; 71260; 74177; 36415; Q9967

== ENCOUNTER 2018-08-04 06:45 | Day surgery (SDC) | payer MEDICARE ==
[2018-08-03 09:41] VITALS: BMI 21.5
[~2018-08-04 06:45] MED LIST: LACTATED RINGERS 1,000 ML IV SCH; LIDOCAINE 1% 20 ML VIAL (10MG/ML) FOR IV START INTRADERMA PRN
[2018-08-04 07:11] VITALS: RESP 16; TEMP 97.8
[2018-08-04] MEDS ORDERED: PROPOFOL 10 MG/ML 20 ML VIAL IV ONE (07:40)
--- NOTE | 2018-08-04 07:42 | P.GSHP ---
History of Present Illness H&P Date: 08/04/18 Chief Complaint: Screening, history of colon cancer 82-year-old male with history of previous colon resection for cancer by Dr. Christy. Recently was found have a slightly elevated CEA level. Last colonoscopy 2-3 years ago. No bowel complaints. Some chronic nausea. 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 Gallstone pancreatitis with cholecystectomy small bowel obstruction secondary to adhesions status post exploratory laparotomy with lysis of adhesions in October 2016 History of Any Multi-Drug Resistant Organisms: None Reported Past Surgical History: Adenoidectomy, Bowel Resection, Cholecystectomy, Joint Replacement, Tonsillectomy Additional Past Surgical History / Comment(s): Bowel resection for cancer, RT HIP arthroplasty, EGD with bx, colonoscopy Past Anesthesia/Blood Transfusion Reactions: No Reported Reaction Smoking Status: Former smoker - Past Family History Father Family Medical History: No Reported History Additional Family Medical History / Comment(s): Father was healthy and lived into his 90's. Mother Family Medical History: No Reported History Additional Family Medical History / Comment(s): Mother was healthy and lived to be 85yrs old. Medications and Allergies Home Medications Medication Instructions Recorded Confirmed Type Aspirin [Adult Low Dose Aspirin EC] 81 mg PO DAILY 10/13/16 08/04/18 History Tamsulosin [Flomax] 0.4 mg PO HS 12/21/17 08/04/18 History Stomach Pill-Namedose Unknown 1 each PO DAILY 08/03/18 08/04/18 History Allergies Allergy/AdvReac Type Severity Reaction Status Date / Time No Known Allergies Allergy Verified 08/04/18 07:14 Surgical - Exam Vital Signs Temp Pulse Resp BP Pulse Ox 97.8 F 88 16 145/93 96 08/04/18 07:10 08/04/18 07:10 08/04/18 07:10 08/04/18 07:10 08/04/18 07:10 Physical exam: General: Well-developed, well-nourished HEENT: Normocephalic, sclerae nonicteric Abdomen: Nontender, nondistended Extremities: No edema Neuro: Alert and oriented Assessment and Plan (1) Colon cancer screening Narrative/Plan: Will proceed with colonoscopy at this time. Current Visit: Yes Status: Acute Code(s): Z12.11 - ENCOUNTER FOR SCREENING FOR MALIGNANT NEOPLASM OF COLON SNOMED Code(s): 361913141
--- NOTE | 2018-08-04 07:59 | P.PCN ---
Date of Procedure: 08/04/18 Procedure(s) Performed: PREOPERATIVE DIAGNOSIS: Colon cancer screening POSTOPERATIVE DIAGNOSIS: Rectal polyp, diverticulosis PROCEDURE: Colonoscopy with snare polypectomy ANESTHESIA: MAC SURGEON: Wong Don M.D. SPECIMENS: Rectal polyp ENDOSCOPIC PROCEDURE: The patient was placed on the endoscopy table in the left decubitus position. The Olympus colonoscope was inserted into the anus and passed under direct visualization to the base of the cecum. The appendiceal orifice was visualized. From that point the scope was slowly withdrawn inspecting all surfaces carefully. There were no neoplastic inflammatory or polypoid lesions throughout the cecum, ascending, transverse, descending, and sigmoid colon. In the proximal rectum at 20 cm a small sessile polyp was identified and removed using the snare with cautery technique. The snare came through the polyp before the cautery was utilized however. A small area of bleeding was controlled using the tip of the snare cautery. No further bleeding was seen at that time. Mild diverticulosis was seen throughout the colon. The exact site of previous colonic resection was not visualized. Digital rectal examination was normal. The patient was taken to the recovery room in stable condition per anesthesia guidelines. RECOMMENDATIONS: Await biopsy results.
[2018-08-04 08:44] VITALS: BP 125/84; PULSE 62
== END 2018-08-04 08:57 | disposition home or self-care (01) ==
LOC: ORWHC2ENDO 06:45
PROVIDERS: ATTEND Surgery
DX: Z12.11 Encounter for screening for malignant neoplasm of colon (principal); D12.8 Benign neoplasm of rectum; K21.9 Gastro-esophageal reflux disease without esophagitis; N40.0 Benign prostatic hyperplasia without lower urinary tract symptoms; K57.30 Diverticulosis of large intestine without perforation or abscess without bleeding; Z79.82 Long term (current) use of aspirin; Z85.038 Personal history of other malignant neoplasm of large intestine; Z87.891 Personal history of nicotine dependence; Z96.641 Presence of right artificial hip joint; Z90.49 Acquired absence of other specified parts of digestive tract; Z92.21 Personal history of antineoplastic chemotherapy; Z79.899 Other long term (current) drug therapy
CPT/HCPCS: 88305; 45385; J2704

== ENCOUNTER 2018-08-24 10:27 | Day surgery (SDC) | payer MEDICARE ==
[2018-08-22 14:28] VITALS: BMI 22.6
[~2018-08-24 10:27] MED LIST changes: -LIDOCAINE 1% 20 ML VIAL (10MG/ML) FOR IV START INTRADERMA PRN
[2018-08-24] MEDS ORDERED: LIDOCAINE 1% 20 ML VIAL (10MG/ML) FOR IV START INTRADERMA ONE (11:03)
[2018-08-24 11:07] VITALS: TEMP 97.9
[2018-08-24] MEDS ORDERED: LIDOCAINE 1% INJ 10MG/ML (20 ML MDV) ONE (12:21)
[2018-08-24] MEDS ORDERED: PROPOFOL 10 MG/ML 20 ML VIAL IV ONE (12:21)
--- NOTE | 2018-08-24 12:26 | P.GSHP ---
History of Present Illness H&P Date: 08/24/18 Chief Complaint: Anemia Patient here today for upper endoscopy. Patient with a diagnosis of iron deficiency anemia. Recent colonoscopy in July showed a small polyp without a source of his anemia identified. Denies rectal bleeding, no melena. 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 small bowel obstruction History of Any Multi-Drug Resistant Organisms: None Reported Past Surgical History: Adenoidectomy, Bowel Resection, Cholecystectomy, Joint Replacement, Tonsillectomy Additional Past Surgical History / Comment(s): Bowel resection, RT HIP replacement, Past Anesthesia/Blood Transfusion Reactions: No Reported Reaction Smoking Status: Former smoker - Past Family History Father Family Medical History: No Reported History Additional Family Medical History / Comment(s): Father was healthy and lived into his 90's. Mother Family Medical History: No Reported History Additional Family Medical History / Comment(s): . Medications and Allergies Home Medications Medication Instructions Recorded Confirmed Type Tamsulosin [Flomax] 0.4 mg PO HS 12/21/17 08/24/18 History Dicyclomine [Bentyl] 10 mg PO BID 08/22/18 08/24/18 History Ferrous Sulfate [Feosol] 325 mg PO DAILY 08/22/18 08/24/18 History Pantoprazole Sodium 40 mg PO BID 08/22/18 08/24/18 History Allergies Allergy/AdvReac Type Severity Reaction Status Date / Time No Known Allergies Allergy Verified 08/24/18 10:58 Surgical - Exam Vital Signs Temp Pulse Resp BP Pulse Ox 97.9 F 78 18 117/72 97 08/24/18 11:06 08/24/18 11:06 08/24/18 11:06 08/24/18 11:06 08/24/18 11:06 Physical exam: General: Well-developed, well-nourished HEENT: Normocephalic, sclerae nonicteric Abdomen: Nontender, nondistended Extremities: No edema Neuro: Alert and oriented Assessment and Plan (1) Anemia Narrative/Plan: Will proceed with upper endoscopy. Current Visit: No Status: Acute Code(s): D64.9 - ANEMIA, UNSPECIFIED SNOMED Code(s): 472703406
--- NOTE | 2018-08-24 12:33 | P.PCN ---
Date of Procedure: 08/24/18 Procedure(s) Performed: Preoperative Dx: Anemia Postoperative Dx: Gastritis, moderate to large sized hiatal hernia Procedure: EGD with Bx Anesthesia: Sedation Endoscopist: Dr. Don Specimens: Antrum Endoscopic Procedure: The patient was on the endoscopy table in the left decubitus position. The Olympus gastroscope was inserted into the oropharynx and passed under direct visualization to the region of the third portion of the duodenum. From that point the scope was slowly withdrawn inspecting all surfaces carefully. There were no neoplastic inflammatory or polypoid lesions throughout the duodenum. The pylorus was widely patent. The stomach was carefully inspected. There was minimal gastritis present. A biopsy of the antrum took place to rule out H. pylori. Retroflexion revealed a moderate to large sized hiatal hernia. The GE junction was present 6-7 cm proximal to the diaphragmatic hiatus. Despite the large size of this hernia there was no inflammatory changes to suggest a source of anemia. The remainder of the esophagus appeared normal although slightly tortuous. The patient was then taken to the recovery room in stable condition per anesthesia guidelines. Recommendations: Await biopsy results. Continue anemia workup.
[2018-08-24 13:01] VITALS: BP 123/82; PULSE 64; RESP 14
== END 2018-08-24 13:15 | disposition home or self-care (01) ==
LOC: ORWHC2ENDO 10:27
PROVIDERS: ATTEND Surgery
DX: K29.50 Unspecified chronic gastritis without bleeding (principal); K44.9 Diaphragmatic hernia without obstruction or gangrene; K21.9 Gastro-esophageal reflux disease without esophagitis; Z85.038 Personal history of other malignant neoplasm of large intestine; Z92.21 Personal history of antineoplastic chemotherapy; Z98.0 Intestinal bypass and anastomosis status; Z79.899 Other long term (current) drug therapy; Z87.891 Personal history of nicotine dependence
CPT/HCPCS: 88305; 43239; J2001; J2704

== ENCOUNTER → 2018-09-05 | Outpatient (CLI) | payer MEDICARE, BC ==
--- NOTE | 2018-09-05 17:29 | US ---
EXAMINATION TYPE: US kidneys/renal and bladder DATE OF EXAM: 09/05/2018 COMPARISON: Ultrasound abdomen 08/19/2017, CT 06/28/2018 CLINICAL HISTORY: R35.0 Urinary Frequency R30.9 Pain with Urination UTI per patient. EXAM MEASUREMENTS: Right Kidney: 10.0 x 4.4 x 4.4 cm Left Kidney: 10.0 x 4.2 x 5.3 cm Post Void Residual Volume: 367.1 mL Right Kidney: No hydronephrosis or masses seen Left Kidney: No hydronephrosis; upper pole simple cortical cyst seen = 1.9 x 1.5 x 2.0cm Bladder: multiple bladder wall diverticuli; posterior internal mobile echoes seen (debris); enlarged prostate is noted Bilateral Jets seen: yes Normal Post Void Residual: no, as is > 50.0ml Kidneys show normal cortical medullary differentiation. Renal cyst left kidney shows increased throug h transmission, imperceptible wall and is anechoic. IMPRESSION: Findings compatible with chronic bladder outlet obstruction. Debris present within the bladder, prost ate is enlarged. Elevated post void residual volume. Simple cyst left kidney
== END | disposition home or self-care (01) ==
LOC: RADUSWWP 15:52
PROVIDERS: ATTEND Internal Medicine
DX: N40.0 Benign prostatic hyperplasia without lower urinary tract symptoms (principal); N28.1 Cyst of kidney, acquired; R39.89 Other symptoms and signs involving the genitourinary system
CPT/HCPCS: 76770

== ENCOUNTER → 2019-06-19 | Outpatient (CLI) | payer MEDICARE, BC ==
--- NOTE | 2019-06-19 10:40 | US ---
EXAMINATION TYPE: US abdomen complete DATE OF EXAM: 06/19/2019 COMPARISON: NONE CLINICAL HISTORY: D69.59 THROMBOCYTOPENIA. Patient states no symptoms, history of cholecystectomy EXAM MEASUREMENTS: Liver Length: 14.7 cm Gallbladder Wall: surgically absent CBD: 0.3 cm Spleen: 10.8 cm Right Kidney: 9.7 x 5.0 x 4.4 cm Left Kidney: 10.2 x 4.4 x 5.3 cm Pancreas: limited visualization Liver: wnl Gallbladder: surgically absent Evidence for sonographic Mejia's sign: no CBD: visualized portion wnl, limited by overlying bowel gas Spleen: wnl Right Kidney: wnl Left Kidney: 2.5 x 1.8 x 1.7cm superior pole Upper IVC: wnl Abd Aorta: proximal portion obscured by overlying midline bowel gas, mid and distal portion wnl The liver is homogenous. The intrahepatic portion of the IVC and proximal abdominal aorta are within normal limits. There is no evidence of cholelithiasis. Common bile duct is unremarkable. The visu alized portions of the pancreas are homogenous. The spleen is unremarkable. Kidneys are symmetric a nd free of hydronephrosis. No suspicious renal lesions are seen. IMPRESSION: 1. No evidence of splenomegaly in this patient with thrombocytopenia. 2. Simple appearing (Bosniak type I) benign left renal cyst of the superior pole. 3. Limited evaluation of the aorta and pancreas, partially obscured by overlying bowel gas.
== END | disposition home or self-care (01) ==
LOC: RADUSWWP 09:35
PROVIDERS: ATTEND Internal Medicine Hematology & Oncology
DX: D69.6 Thrombocytopenia, unspecified (principal); N28.1 Cyst of kidney, acquired; R14.3 Flatulence; D69.59 Other secondary thrombocytopenia
CPT/HCPCS: 76700

== ENCOUNTER → 2020-05-13 | Outpatient (CLI) | payer MEDICARE ==
--- NOTE | 2020-05-13 16:17 | CT ---
EXAMINATION TYPE: CT abdomen pelvis w con DATE OF EXAM: 05/13/2020 COMPARISON: 06/28/2018 HISTORY: 84-year-old male R10.84, generalized abdominal pain. Epigastric to periumbilical pain TECHNIQUE: Contiguous axial scanning of the abdomen and pelvis following administration of 80 ml Isov ue 300 IV contrast. Delayed images through the kidneys and coronal/sagittal reconstructions performe d. CT DLP: 442.4 mGycm Automated exposure control for dose reduction was used. FINDINGS: Heart normal size with trace pericardial fluid. Scattered coronary artery calcifications are present. Extensive emphysematous and fibrotic changes in the lower lungs. 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 Large hiatal hernia containing two thirds of the stomach. Ectatic and tortuous lower descending thora cic aorta measuring 2.7 cm. No focal liver lesion or biliary ductal dilatation. Portal venous system is patent. Some lobulated pancreatic tissue measuring 1.1 cm along the anterior margin of the pancreatic head, a xial image 22, unchanged from 06/28/2018. Cholecystectomy clips. Adrenal glands, right kidney, spleen, and pancreas otherwise appear within normal limits. A new parapelvic cyst in the left kidney measuring 2.4 cm. Borderline ectasia infrarenal abdominal aorta at 2.5 cm. Ectatic right and left common iliac arteries measuring up to 1.6 cm. No mesenteric or retroperitoneal lymphadenopathy. No dilated small bowel, free fluid, or free air. Oral contrast progressed to the distal third transverse colon. Mild overall stool burden. Generalized colonic diverticulosis, greatest in the left side of the colon. No pericolonic inflammatory change s een. There is a staple line at the rectosigmoid junction from prior resection and reanastomosis. Severely trabeculated and thick-walled bladder. There is prominent distention of the urinary bladder filling the pelvis measuring 12.0 cm AP and 10.5 cm wide. There is wedge-shaped defect extending into the prostate gland along the base of the bladder, suspect ed prior TURP. Prostate gland measures 5.0 cm wide. No abnormal fluid collection in the pelvis or pelvic lymphadenopathy. Prominent metal artifact relating to the patient's right hip total arthroplasty limiting visualizatio n of the pelvic structures. Mild degenerative change of the left hip. Anterior wedging deformity at T11 appears chronic. Accentua marylou thoracic kyphosis at this level. Stable trace grade 1 anterolisthesis at L3-L4. IMPRESSION: 1. COPD AND FIBROTIC CHANGES AT THE VISUALIZED LUNG BASES, POSSIBLE UIP PATTERN OF LUNG INJURY. 2. LARGE HIATAL HERNIA REDEMONSTRATED CONTAINING TWO THIRDS OF THE STOMACH. 3. GENERALIZED COLONIC DIVERTICULOSIS, GREATEST DISTALLY. NO EVIDENCE FOR ACUTE DIVERTICULITIS. PRIOR DISTAL COLON RESECTION AND REANASTOMOSIS AT THE RECTOSIGMOID JUNCTION. 4. PROSTATOMEGALY OF 5.0 CM WIDE WITH PRIOR TURP. THERE IS SEVERE TRABECULATED THICKENING OF THE BLAD JAVED WALL IN KEEPING WITH CHRONIC BLADDER OUTLET OBSTRUCTION. CLINICALLY CORRELATE.
== END | disposition home or self-care (01) ==
LOC: RADCTMAIN 11:20
PROVIDERS: ATTEND Internal Medicine
DX: K44.9 Diaphragmatic hernia without obstruction or gangrene (principal); K57.30 Diverticulosis of large intestine without perforation or abscess without bleeding; N40.0 Benign prostatic hyperplasia without lower urinary tract symptoms; J44.9 Chronic obstructive pulmonary disease, unspecified; N32.0 Bladder-neck obstruction
CPT/HCPCS: 82565; 84520; 74177; 36415; Q9967

== ENCOUNTER → 2021-03-24 | Outpatient (CLI) | payer MEDICARE ==
[2021-03-24 12:27] LABS: Appearance,Urine Cloudy (Clear); Bacteria,Urine Moderate /hpf; Bilirubin,Urine Negative (Negative); Blood,Urine Trace (Negative); Color,Urine Light Yellow; Glucose,Urine (UA) Negative (Negative); Ketones,Urine Negative (Negative); Leukocyte Esterase,Urine Large (Negative); Nitrite,Urine Negative (Negative); Protein,Urine Negative (Negative); RBC,Urine 5 /hpf (0-5); Specific Gravity,Urine 1.007 (1.001-1.035); Squamous Epithelial Cell,Urine <1 /hpf (0-4); Urobilinogen,Urine <2.0 mg/dL (<2.0); WBC,Urine 170 /hpf (0-5)
[2021-03-24 12:35] LABS: Calcium 9.9 mg/dL (8.4-10.2); Potassium 4.9 mmol/L (3.5-5.1)
[2021-03-24 12:41] LABS: Basophils % (A) 1 %; Eosinophils % (A) 1 %; HCT 43.8 % (39.0-53.0); HGB 14.5 gm/dL (13.0-17.5); Lymphocytes # (A) 2.2 k/uL (1.0-4.8); Lymphocytes % (A) 37 %; MCH 31.4 pg (25.0-35.0); MCHC 33.1 g/dL (31.0-37.0); MCV 95.1 fL (80.0-100.0); Monocytes # (A) 0.6 k/uL (0-1.0); Monocytes % (A) 10 %; Neutrophils % (A) 50 %; Platelet Count 111 k/uL (150-450); RBC 4.61 m/uL (4.30-5.90); RDW 13.4 % (11.5-15.5)
== END | disposition home or self-care (01) ==
LOC: LABPAT 11:21
PROVIDERS: ATTEND Urology
DX: Z01.812 Encounter for preprocedural laboratory examination (principal); N21.9 Calculus of lower urinary tract, unspecified; R31.1 Benign essential microscopic hematuria
CPT/HCPCS: 36415; 80048; 81001; 85025; 87086

== ENCOUNTER 2021-03-30 07:52 | Day surgery (SDC) | payer MEDICARE ==
--- NOTE | 2021-03-23 08:26 | P.HPIHPCON ---
History of Present Illness H&P Date: 03/23/21 Chief Complaint: Dysuria, difficulty voiding This is an 85-year-old male history of BPH, status post TURP by Dr. Morin. He indicated he noticed symptoms improvement following surgery, but was recently having dysuria, and difficulty voiding. His urine cultures have been negative. He underwent an office cystoscopy that showed evidence of bladder stones at the bladder neck. Discussed with him the option of doing laser lithotripsy on the stones as this could be contributing to his difficulty voiding and dysuria. Discussed with him the risk which includes but not limited to bleeding, infection, injury to the bladder, injury to the urethra. Discussed also with him the potential of his symptoms might persist even after surgery. He understood all the risk and agreed to proceed with cystolitholapaxy Consent for Procedure: I have explained the operation/procedure to the patient, including the risks, benefits, side effects, alternative therapies (including not receiving the proposed treatment or service), the likelihood of the patient achieving his/her goals, and potential recuperation problems for the procedure/sedation/analgesia, as well as any blood products, if indicated. I also explained to the patient the risks, benefits and side effects of the alternatives, as well as the risks related to not receiving the proposed procedure, care, treatment, or services. 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 small bowel obstruction History of Any Multi-Drug Resistant Organisms: None Reported Past Surgical History: Adenoidectomy, Bowel Resection, Cholecystectomy, Joint Replacement, Tonsillectomy Additional Past Surgical History / Comment(s): Bowel resection, RT HIP replacement, Past Anesthesia/Blood Transfusion Reactions: No Reported Reaction Past Psychological History: No Psychological Hx Reported Additional Psychological History / Comment(s): . Past Alcohol Use History: None Reported Additional Past Alcohol Use History / Comment(s): Pt smoked for 6 months in high school. Past Drug Use History: None Reported - Past Family History Father Family Medical History: No Reported History Additional Family Medical History / Comment(s): Father was healthy and lived into his 90's. Mother Family Medical History: No Reported History Additional Family Medical History / Comment(s): . Medications and Allergies Home Medications Medication Instructions Recorded Confirmed Type Tamsulosin [Flomax] 0.4 mg PO HS 12/21/17 08/24/18 History Dicyclomine [Bentyl] 10 mg PO BID 08/22/18 08/24/18 History Ferrous Sulfate [Feosol] 325 mg PO DAILY 08/22/18 08/24/18 History Pantoprazole Sodium 40 mg PO BID 08/22/18 08/24/18 History Allergies Allergy/AdvReac Type Severity Reaction Status Date / Time No Known Allergies Allergy Verified 08/24/18 10:58 Surgical - Exam - General well developed, well nourished, no distress, no pain - Eyes PERRL, normal ocular movement - ENT normal nares, normal mucosa - Respiratory normal expansion, normal respiratory effort Assessment and Plan Assessment: 85-year-old male with history of stone at the bladder neck -Or for cystolitholapaxy
[2021-03-25 14:40] VITALS: BMI 21.4
[~2021-03-30 07:52] MED LIST changes: +DEXAMETHASONE SOD PHOSPHATE 4 MG/ML 1 ML VIAL IV ONE; +HYDROmorphone 0.5 MG/0.5 ML SYRINGE IVP PRN; +MIDAZOLAM 2 MG/2 ML VIAL IV PRN; +ONDANSETRON 4 MG/2 ML VIAL IVP ONE
[2021-03-30] MEDS ORDERED: LIDOCAINE 1% (10MG/ML) FOR IV START INTRADERMA ONE (08:25)
[2021-03-30] MEDS ORDERED: fentaNYL (PF) 50 MCG/ML 2 ML AMP ONE (09:30)
[2021-03-30] MEDS ORDERED: PROPOFOL 10 MG/ML 20 ML VIAL IV ONE (09:30)
[2021-03-30] MEDS ORDERED: MIDAZOLAM 2 MG/2 ML VIAL ONE (09:30)
[2021-03-30] MEDS ORDERED: ePHEDrine SULFATE/0.9% NACL/PF 50 MG/5 ML SYRINGE IV ONE (09:30)
--- NOTE | 2021-03-30 10:34 | P.OP ---
Date of Procedure: 03/30/21 Preoperative Diagnosis: Dysuria, bladder stones Postoperative Diagnosis: Dysuria, bladder stone, bladder tumor Procedure(s) Performed: Cystoscopy, cystolitholapaxy, bladder biopsy with fulguration Implants: none Anesthesia: DENITAA Surgeon: Kwan Perez Estimated Blood Loss (ml): 5 Pathology: other (Bladder tumor) Condition: stable Disposition: PACU Indications for Procedure: This is an 85-year-old male history of BPH, status post TURP by Dr. Morin. He indicated he noticed symptoms improvement following surgery, but was recently having dysuria, and difficulty voiding. His urine cultures have been negative. He underwent an office cystoscopy that showed evidence of bladder stones at the bladder neck. Discussed with him the option of doing laser lithotripsy on the stones as this could be contributing to his difficulty voiding and dysuria. Di scussed with him the risk which includes but not limited to bleeding, infection, injury to the bladder, injury to the urethra. Discussed also with him the potential of his symptoms might persist even after surgery. He understood all the risk and agreed to proceed with cystolitholapaxy Operative Findings: Two small papillary lesions, along the posterior bladder wall, heavily trabeculated bladder with multiple tics. Multiple small stones adherent to the anterior bladder neck Description of Procedure: She was brought to the operating room, general anesthesia was induced. He was prepped and draped in sterile fashion a placement dorsal lithotomy position. A cystoscopy fitted with 21-[place] sheath was inserted per urethra, the cystoscope was advanced into the bladder. There was no evidence of urethral stricture, or bladder neck contracture. But of note there was multiple stones adherent to the anterior bladder neck. cystoscopy was performed which showed a heavily trabeculated bladder with multiple tics. Additionally there was two papillary lesions along the posterior bladder wall. Using the biopsy forceps the bladder lesions were biopsies and the area of biopsy was thoroughly fulgurated. At this time attention was carried to the bladder neck, along the anterior bladder neck there was multiple small stones adherent to the mucosa. Using the holmium laser the stones were fragmented off the wall. Area was of bleeding along the bladder neck was fulgurated using the Bugbee's. The bladder was emptied and the case with return of clear clear urine. Give [place] Kwan catheter was placed in the balloon was inflated with 20 mL's. Patient was awakened from anesthesia and taken to recovery in stable condition
[2021-03-30 10:36] VITALS: TEMP 97.5
[2021-03-30 11:26] VITALS: RESP 16
[2021-03-30 12:00] VITALS: BP 137/91; PULSE 76
== END 2021-03-30 12:54 | disposition home or self-care (01) ==
LOC: OR 07:52
PROVIDERS: ATTEND Urology
DX: N21.0 Calculus in bladder (principal); N30.20 Other chronic cystitis without hematuria; N32.89 Other specified disorders of bladder; K21.9 Gastro-esophageal reflux disease without esophagitis; Z79.899 Other long term (current) drug therapy; Z85.038 Personal history of other malignant neoplasm of large intestine; Z86.12 Personal history of poliomyelitis; Z90.49 Acquired absence of other specified parts of digestive tract; Z87.891 Personal history of nicotine dependence; D36.7 Benign neoplasm of other specified sites
CPT/HCPCS: 52317; 52214; 88305; 88342; 88341; C1769; J2250; J1100; J0690; J2405; J3010; J2704

== ENCOUNTER → 2021-04-16 | Outpatient (CLI) | payer MEDICARE ==
--- NOTE | 2021-04-16 21:36 | CT ---
EXAMINATION TYPE: CT abdomen pelvis w con DATE OF EXAM: 04/16/2021 COMPARISON: 05/13/2020 INDICATION: Generalized abdominal pain, Painful urination with increased pressure DLP: 579.00 mGycm, Automated exposure control for dose reduction was used. CONTRAST: 100 ml mL of Isovue 300. Study performed with Oral Contrast TECHNIQUE: Axial images were obtained from above the diaphragm to the pubic rami in the axial plane a t 5 mm thick sections. Reconstructed images are reviewed on the computer in the coronal plane. FINDINGS: Limited CT sections are obtained the lung bases. Emphysematous changes are present bilaterally. Ther e is a very large hiatal hernia with a largely intrathoracic stomach.. CT ABDOMEN: Liver: Mild fatty infiltration is within the liver. Spleen: Normal Pancreas: Normal Adrenal glands: The adrenal glands are normal. Gallbladder: Normal Kidneys: No masses are evident. No hydronephrosis is present. A left peripelvic cyst is present. D elayed images were obtained through the kidneys, which remain unremarkable. Aorta: Vascular calcification is within the aorta. Minimal fusiform prominence is present with the g reatest AP diameter of 2.5 cm in the mid abdominal aorta. The common iliac arteries appear prominent measuring 1.7 cm each. Inferior vena cava: Normal. CT PELVIS: Loops of bowel within the abdomen and pelvis are normal. There is a large fecal bolus in the rectum. There are loops of bowel which are incompletely distended or lack oral contrast limiting their pablo luation. Appendix: Normal as visualized. Urinary bladder: Irregular bladder wall thickening may be present. This is somewhat difficult to eval uate given significant beam hardening artifact from right hip prosthesis. Genitourinary structures: Prostate is visualized is unremarkable. Osseous structures: No suspicious lytic or sclerotic lesions. IMPRESSIONS: 1. Mild fusiform prominence of the aorta and common iliac arteries as discussed above. 2. There may be some irregular wall thickening of the urinary bladder. Additional workup is recommend ed. 3. Largely intrathoracic stomach. 4. Severe Emphysematous changes lung bases
== END | disposition home or self-care (01) ==
LOC: RADCTMAIN 11:23
PROVIDERS: ATTEND Internal Medicine
DX: R10.84 Generalized abdominal pain (principal); J43.9 Emphysema, unspecified
CPT/HCPCS: 82565; 84520; 74177; 36415; Q9967

== ENCOUNTER → 2022-06-21 | Outpatient (CLI) | payer MEDICARE ==
--- NOTE | 2022-06-21 15:15 | CT ---
EXAMINATION TYPE: CT chest w con CT DLP: 249.40 mGycm, Automated exposure control for dose reduction was used. DATE OF EXAM: 06/21/2022 2:43 PM COMPARISON: CT chest 02/15/2022. CLINICAL INDICATION:Male, 86 years old with history of R91.1 Solitary pulmonary nodule; TECHNIQUE: Multiple axial images were obtained through the chest following the administration of 70 c c of Isovue 300. Coronal and sagittal reformats reviewed. FINDINGS: LUNGS/ PLEURA: No pleural effusion or pneumothorax. Redemonstration for interstitial changes similar prior examination including parenchymal bands, thickened interlobular septal lines, and bronchiectasi s. Honeycombing is present at the lung bases. Decreased size groundglass opacity in the medial right upper lobe with bronchiectasis now demonstrated. This is most consistent with focal scarring. No new or enlarging pulmonary nodules. AIRWAY: Patent and unremarkable. HEART: Size within normal limits. No pericardial effusion. Coronary artery calcifications are present . MEDIASTINUM: No pathologic lymphadenopathy. Calcified mediastinal and hilar lymph nodes redemonstrate d. VASCULATURE: No aortic aneurysm. The pulmonary artery is enlarged with the right main pulmonary usha ry measuring up to 3.5 cm. This can be seen in the setting of pulmonary arterial hypertension. MUSCULOSKELETAL: No acute osseous abnormalities. Remote right-sided rib fractures. Stable anterior we dge deformity of the T11 vertebral body without evidence of retropulsion. SOFT TISSUES/LYMPH NODES: Bilateral gynecomastia. No axillary lymphadenopathy. LOWER NECK: No significant findings. UPPER ABDOMEN: Large paraesophageal hernia in the chest with at least 50% of the stomach. Postcholecy stectomy changes. IMPRESSION: 1. Decreased size of groundglass opacity in the medial right upper lobe, now bronchiectasis demonstra marlyou. This is most consistent with scarring. No new or enlarging pulmonary nodules. 2. 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 3. Large paraesophageal hernia redemonstrated.
== END | disposition home or self-care (01) ==
LOC: RADCTMAIN 13:38
PROVIDERS: ATTEND Internal Medicine Critical Care Medicine
DX: R91.8 Other nonspecific abnormal finding of lung field (principal)
CPT/HCPCS: 82565; 84520; 71260; 36415; Q9967

== ENCOUNTER → 2022-12-10 | Outpatient (CLI) | payer MEDICARE ==
--- NOTE | 2022-12-10 08:30 | US ---
EXAMINATION TYPE: US abdomen complete DATE OF EXAM: 12/10/2022 COMPARISON: NONE CLINICAL HISTORY: R10.84 ABDOMINAL PAIN. Generalized TECHNIQUE: Multiple sonographic images of the abdomen are obtained. FINDINGS: EXAM MEASUREMENTS: Liver Length: 13.2 cm Gallbladder Wall: Surgically absent CBD: 0.20 cm Spleen: 10.6 cm Right Kidney: 9.8 x 3.9 x 4.0 cm Left Kidney: 9.9 x 4.7 x 4.1 cm BAFFLE INSTALLER NOTES: Midline obscured by overlying bowel gas. Pancreas: Obscured by bowel gas Liver: Left lobe limited, right lobe wnl Gallbladder: Surgically absent Evidence for sonographic Mejia's sign: No CBD: wnl Spleen: wnl Right Kidney: wnl Left Kidney: Anechoic cyst superior pole 2.1 x 2.0 x1.9cm Upper IVC: wnl Abd Aorta: Proximal obscured by overlying bowel gas. Mid and distal upper limits of normal to sligh tly ectatic. IMPRESSION: 1. Left renal cyst
== END | disposition home or self-care (01) ==
LOC: RADUSWWP 07:39
PROVIDERS: ATTEND Internal Medicine
DX: N28.1 Cyst of kidney, acquired (principal)
CPT/HCPCS: 76700

== ENCOUNTER → 2023-10-24 | Outpatient (CLI) | payer MEDICARE ==
[2023-10-24 16:27] LABS: African American GFR (CKD) 70 (>60 ml/min/1.73 sqM); Blood Urea Nitrogen 20 mg/dL (9-20); Non-African American GFR(CKD) 60 (>60 ml/min/1.73 sqM)
--- NOTE | 2023-10-25 09:12 | CT ---
EXAMINATION TYPE: CT abdomen pelvis w con DATE OF EXAM: 10/24/2023 COMPARISON: 04/16/2021 HISTORY: abdominal pain, nausea CT DLP: 463.9 mGycm Automated exposure control for dose reduction was used. CONTRAST: CT scan of the abdomen pelvis is performed with IV Contrast, patient injected with 80 mL of Isovue 30 0. FINDINGS-Evaluation of pelvis limited due to artifact from right hip metallic prostheses. LUNG BASES- large hiatal hernia with emphysematous changes and findings compatible with chronic pulm onary fibrosis heart is enlarged and there is coronary artery calcification trace of pericardial flui d. Elevated right hemidiaphragm. There is ectasia of the aorta. Aortic valve calcifications. LIVER/GB- liver low attenuation poorly at least cirrhosis. No focal mass. Previous cholecystectomy. PANCREAS- No gross abnormality is seen. SPLEEN- No gross abnormality is seen. ADRENALS- No gross abnormality is seen. KIDNEYS/BLADDER-no hydronephrosis or nephrolithiasis. Cortical loss on the kidney and a simple appear ing left renal cyst. Bladder is distended with mild wall thickening and trabeculation. Artifact from the right hip prostheses limits assessment of the pelvis. A tiny calcification on the posterior right bladder wall measuring 1 to 2 mm. BOWEL- containing debris in the rectum. Bowel gas pattern is nonspecific. There are prominent bowel loops small bowel. Duodenal diverticulum. LYMPH NODES- No greater than 1cm abdominal or pelvic lymph nodes are appreciated. OSSEOUS STRUCTURES- prosthetic right hip limits assessment of the pelvis. There is a chronic severe compression fracture lower thoracic spine T11. Grade 1 anterolisthesis of L4-L5. Multilevel facet art hropathy with diffuse previa. Left hip radiograph. OTHER- ectasia of the abdominal aorta with common iliac arteries again noted to be prominent compati ble with mild aneurysmal dilation measuring a maximum dimension 1.9 cm . There are new nodule seen in the left femoral region suspicious for lymphadenopathy or Testicles recommend. There is a metallic density overlying the anterior abdominal wall related to prior surgery. IMPRESSION- 1. There are bilateral soft tissue nodules seen in the region of the canal which could represent low- lying testicles. Adenopathy not excluded recommend follow-up ultrasound. 2. There are multiple prominent small bowel loops in the abdomen but no definite transition point. Co uld be on the basis of an ileus. Partial obstructive pattern is not entirely excluded. Correlate clin ically. 3. Large hiatal hernia 4. COPD with pulmonary fibrosis. Slight #ectasia of the abdominal aorta with a maximal dimension of 2 .8 cm. 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 The bladder is distended with trabeculation and wall thickening correlate for chronic cystitis and bl adder outlet obstruction. Prostate is prominent in size.
== END | disposition home or self-care (01) ==
LOC: RADCTMAIN 15:09
PROVIDERS: ATTEND Internal Medicine
DX: N32.89 Other specified disorders of bladder (principal); R10.0 Acute abdomen; I72.3 Aneurysm of iliac artery; J44.9 Chronic obstructive pulmonary disease, unspecified; K44.9 Diaphragmatic hernia without obstruction or gangrene; R11.0 Nausea; J84.10 Pulmonary fibrosis, unspecified
CPT/HCPCS: 82565; 84520; 74177; 36415; Q9967

== ENCOUNTER 2023-12-07 11:31 | Emergency (ER) | payer MEDICARE ==
[2023-12-07 12:01] VITALS: BP 102/66; PULSE 79; RESP 18; TEMP 97.9
--- NOTE | 2023-12-07 12:20 | ED ---
General Adult HPI - General Chief complaint: Weakness Stated complaint: Nausea,Weakness Time Seen by Provider: 12/07/23 12:14 Source: patient, RN notes reviewed, old records reviewed Mode of arrival: wheelchair Limitations: no limitations - History of Present Illness Initial comments: 88-year-old male with nausea, poor appetite, weight loss. Patient is presenting today with chief complaint of weakness. He states that his primary care provider has worked up his abdominal discomfort and nausea and has not found anything specific to date. He denies fever. Denies night sweats. He states he had approximately 30 pound weight loss. He denies abdominal pain and describes his symptoms more as nausea. No fever. No cough. No chest pain. - Related Data Home Medications Medication Instructions Recorded Confirmed Pantoprazole Sodium 40 mg PO BID PRN 08/22/18 12/07/23 Dicyclomine [Bentyl] 20 mg PO QID 03/25/21 12/07/23 Levothyroxine Sodium [Synthroid] 50 mcg PO DAILY 12/07/23 12/07/23 Tamsulosin [Flomax] 0.4 mg PO DAILY 12/07/23 12/07/23 Previous Rx's Medication Instructions Recorded Omeprazole [PriLOSEC] 20 mg PO AC-BRKFST 30 Days #30 cap 12/07/23 Allergies Allergy/AdvReac Type Severity Reaction Status Date / Time No Known Allergies Allergy Verified 12/07/23 14:47 Review of Systems ROS Statement: Those systems with pertinent positive or pertinent negative responses have been documented in the HPI. ROS Other: All systems not noted in ROS Statement are negative. 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 small bowel obstruction History of Any Multi-Drug Resistant Organisms: None Reported Past Surgical History: Adenoidectomy, Bowel Resection, Cholecystectomy, Joint Replacement, Tonsillectomy Additional Past Surgical History / Comment(s): Bowel resection, RT HIP replacement, Past Anesthesia/Blood Transfusion Reactions: No Reported Reaction Past Psychological History: No Psychological Hx Reported Smoking Status: Former smoker Past Alcohol Use History: None Reported Past Drug Use History: None Reported - Past Family History Father Family Medical History: No Reported History Additional Family Medical History / Comment(s): Father was healthy and lived into his 90's. Mother Family Medical History: No Reported History Additional Family Medical History / Comment(s): . General Exam Limitations: no limitations General appearance: alert, in no apparent distress, cachectic Eye exam: Present: normal appearance, PERRL ENT exam: Present: mucous membranes dry Neck exam: Present: normal inspection. Absent: tenderness, meningismus Respiratory exam: Present: normal lung sounds bilaterally. Absent: respiratory distress, wheezes Cardiovascular Exam: Present: regular rate, normal rhythm GI/Abdominal exam: Present: soft. Absent: distended, tenderness, guarding, rebound Extremities exam: Present: normal inspection, normal capillary refill. Absent: pedal edema Neurological exam: Present: alert, oriented X3, CN II-XII intact. Absent: motor sensory deficit Psychiatric exam: Present: normal affect, normal mood Skin exam: Present: warm, dry, intact. Absent: cyanosis, diaphoretic Course Vital Signs 12/07/23 11:47 Temperature 97.9 F Pulse Rate 79 Respiratory 18 Rate Blood Pressure 102/66 O2 Sat by Pulse 97 Oximetry Medical Decision Making - Medical Decision Making Was pt. sent in by a medical professional or institution (, PA, DOT NET ARCHITECT, urgent care, hospital, or halfway...) When possible be specific @ -No Did you speak to anyone other than the patient for history (EMS, parent, family, police, friend...)? What history was obtained from this source @ -No Did you review nursing and triage notes (agree or disagree)? Why? @ -I reviewed and agree with nursing and triage notes Were old charts reviewed (outside hosp., previous admission, EMS record, old EKG, old radiological studies, urgent care reports/EKG's, halfway records)? Report findings @ -No old charts were reviewed Differential Diagnosis (chest pain, altered mental status, abdominal pain women, abdominal pain men, vaginal bleeding, weakness, fever, dyspnea, syncope, headache, dizziness, GI bleed, back pain, seizure, CVA, palpatations, mental health, musculoskeletal)? @Differential Abdominal Pain Men: Appendicitis, cholecystitis, diverticulosis, ischemic bowel, pancreatitis, hepatitis, UTI, gastroenteritis, AAA, incarcerated hernia, bowel obstruction, constipation, inflammatory bowel, hepatitis, peptic ulcer disease, splenic infarction, perforated viscus, testicular torsion, this is not meant to be an all-inclusive list EKG interpreted by me (3pts min.). @Sinus rhythm no ST segment elevation, ventricular rate of 74, MI interval 137, QRS duration 115, QTc 452 X-rays interpreted by me (1pt min.). @ -Chest x-ray negative for acute cardiopulmonary findings, hiatal hernia visualized CT interpreted by me (1pt min.). @ -CT abdomen pelvis showing hiatal hernia without other acute abnormality. U/S interpreted by me (1pt. min.). @ -None done What testing was considered but not performed or refused? (CT, X-rays, U/S, labs)? Why? @ -None What meds were considered but not given or refused? Why? @ -None Did you discuss the management of the patient with other professionals (professionals i.e. , PA, DOT NET ARCHITECT, lab, RT, psych nurse, social services designee, leather grader, teacher, correctional officer lieutenant, child welfare caseworker)? Give summary @ -No Was smoking cessation discussed for >3mins.? @ -No Was critical care preformed (if so, how long)? @ -No Were there social determinants of health that impacted care today? How? (Homelessness, low income, unemployed, alcoholism, drug addiction, transportation, low edu. Level, literacy, decrease access to med. care, retirement, rehab)? @ -No Was there de-escalation of care discussed even if they declined (Discuss DNR or withdrawal of care, Hospice)? DNR status @ -No What co-morbidities impacted this encounter? (DM, HTN, Smoking, COPD, CAD, Cancer, CVA, ARF, Chemo, Hep., AIDS, mental health diagnosis, sleep apnea, morbid obesity)? @ -None Was patient admitted / discharged? Hospital course, mention meds given and route, prescriptions, significant lab abnormalities, going to OR and other pertinent info. @ -[88-year-old male with weakness, poor appetite, nausea. No focal tenderness on exam. Vital signs are stable. Patient's workup reveals a pancytopenia with anemia of 11.6. Chest x-ray showing hiatal hernia, CT showing hiatal hernia without other acute findings. Patient does have an appointment with general surgery for evaluation of his hiatal hernia but this is not until February. Patient feels overall well and is agreeable with discharge. Instructed to start omeprazole, and nutritional shakes. Return parameters discussed. Daughter at bedside. Undiagnosed new problem with uncertain prognosis? @ -No Drug Therapy requiring intensive monitoring for toxicity (Heparin, Nitro, Insulin, Cardizem)? @ -No Were any procedures done? @ -No Diagnosis/symptom? @ -[Nausea, hiatal hernia Acute, or Chronic, or Acute on Chronic? @Chronic Uncomplicated (without systemic symptoms) or Complicated (systemic symptoms)? @ -Default Side effects of treatment? @ -No Exacerbation, Progression, or Severe Exacerbation? @ -No Poses a threat to life or bodily function? How? (Chest pain, [place], [place], pneumonia, PE, COPD, DKA, ARF, appy, cholecystitis, CVA, Diverticulitis, Homicidal, Suicidal, threat to staff... and all critical care pts) @ -[Low risk at this time - Lab Data Result diagrams: 12/07/23 13:45 12/07/23 13:45 Lab Results 12/07/23 12/07/23 12/07/23 Range/Units 13:45 13:45 13:45 WBC 3.2 L (3.8-10.6) k/uL RBC 3.35 L (4.30-5.90) m/uL Hgb 11.6 L (13.0-17.5) gm/dL Hct 33.3 L (39.0-53.0) % MCV 99.6 (80.0-100.0) fL MCH 34.6 (25.0-35.0) pg MCHC 34.8 (31.0-37.0) g/dL RDW 15.3 (11.5-15.5) % Plt Count 90 L (150-450) k/uL MPV 10.2 Neutrophils % 53 % Lymphocytes % 30 % Monocytes % 13 % Eosinophils % 1 % Basophils % 1 % Neutrophils # 1.7 (1.3-7.7) k/uL Lymphocytes # 1.0 (1.0-4.8) k/uL Monocytes # 0.4 (0-1.0) k/uL Eosinophils # 0.0 (0-0.7) k/uL Basophils # 0.0 (0-0.2) k/uL Manual Slide Review Performed Macrocytosis Slight Sodium 139 (137-145) mmol/L Potassium 4.7 (3.5-5.1) mmol/L Chloride 110 H (98-107) mmol/L Carbon Dioxide 23 (22-30) mmol/L Anion Gap 6 mmol/L BUN 28 H (9-20) mg/dL Creatinine 1.13 (0.66-1.25) mg/dL Est GFR (CKD-EPI)AfAm 67 (>60 ml/min/1.73 sqM) Est GFR (CKD-EPI)NonAf 58 (>60 ml/min/1.73 sqM) Glucose 106 H (74-99) mg/dL Plasma Lactic Acid Pedrito 1.6 (0.7-2.0) mmol/L Calcium 8.9 (8.4-10.2) mg/dL Magnesium 2.1 (1.6-2.3) mg/dL Total Bilirubin 1.1 (0.2-1.3) mg/dL AST 31 (17-59) U/L ALT 24 (4-49) U/L Alkaline Phosphatase 120 (38-126) U/L Troponin I (0.000-0.034) ng/mL Total Protein 6.8 (6.3-8.2) g/dL Albumin 3.6 (3.5-5.0) g/dL Influenza Type A (PCR) (Not Detectd) Influenza Type B (PCR) (Not Detectd) RSV (PCR) (Not Detectd) SARS-CoV-2 (PCR) (Not Detectd) 12/07/23 12/07/23 Range/Units 13:45 13:45 WBC (3.8-10.6) k/uL RBC (4.30-5.90) m/uL Hgb (13.0-17.5) gm/dL Hct (39.0-53.0) % MCV (80.0-100.0) fL MCH (25.0-35.0) pg MCHC (31.0-37.0) g/dL RDW (11.5-15.5) % Plt Count (150-450) k/uL MPV Neutrophils % % Lymphocytes % % Monocytes % % Eosinophils % % Basophils % % Neutrophils # (1.3-7.7) k/uL Lymphocytes # (1.0-4.8) k/uL Monocytes # (0-1.0) k/uL Eosinophils # (0-0.7) k/uL Basophils # (0-0.2) k/uL Manual Slide Review Macrocytosis Sodium (137-145) mmol/L Potassium (3.5-5.1) mmol/L Chloride (98-107) mmol/L Carbon Dioxide (22-30) mmol/L Anion Gap mmol/L BUN (9-20) mg/dL Creatinine (0.66-1.25) mg/dL Est GFR (CKD-EPI)AfAm (>60 ml/min/1.73 sqM) Est GFR (CKD-EPI)NonAf (>60 ml/min/1.73 sqM) Glucose (74-99) mg/dL Plasma Lactic Acid Pedrito (0.7-2.0) mmol/L Calcium (8.4-10.2) mg/dL Magnesium (1.6-2.3) mg/dL Total Bilirubin (0.2-1.3) mg/dL AST (17-59) U/L ALT (4-49) U/L Alkaline Phosphatase (38-126) U/L Troponin I 0.014 (0.000-0.034) ng/mL Total Protein (6.3-8.2) g/dL Albumin (3.5-5.0) g/dL Influenza Type A (PCR) Not Detected (Not Detectd) Influenza Type B (PCR) Not Detected (Not Detectd) RSV (PCR) Not Detected (Not Detectd) SARS-CoV-2 (PCR) Not Detected (Not Detectd) Disposition Clinical Impression: Anemia, Hiatal hernia, Nausea Disposition: HOME SELF-CARE Condition: Fair Instructions (If sedation given, give patient instructions): Acute Nausea and Vomiting (DC), Hiatal Hernia (ED) Prescriptions: Omeprazole [PriLOSEC] 20 mg PO AC-BRKFST 30 Days #30 cap Is patient prescribed a controlled substance at d/c from ED?: No Referrals: Karin Fischer MD [Primary Care Provider] - 1-2 days Wong Don MD [Medical Doctor] - 1-2 days Time of Disposition: 16:34
--- NOTE | 2023-12-07 13:24 | XR ---
EXAMINATION TYPE: XR chest 2V DATE OF EXAM: 12/07/2023 1:20 PM CLINICAL INDICATION:Male, 88 years old with history of weak; COMPARISON: Chest radiographs from 12/21/2017 TECHNIQUE: XR chest 2V Frontal and lateral views of the chest. FINDINGS: Lungs/Pleura: Prominent interstitial lung markings are seen scattered throughout the lungs. No eviden ce of focal consolidation, pneumothorax or pleural effusion. Pulmonary vascularity: Unremarkable. Heart/mediastinum: Cardiomediastinal silhouette is unremarkable. Suspected large hiatal hernia projec ts over the spine. Musculoskeletal: No acute osseous pathology. Wedging of multiple vertebral body noted. IMPRESSION: 1. Chronic changes without acute pulmonary process. No significant change from prior. 2. Large hiatal hernia present.
[2023-12-07] MEDS ORDERED: FAMOTIDINE 20 MG/2 ML VIAL IV STA (13:38)
[2023-12-07] MEDS ORDERED: ONDANSETRON 4 MG/2 ML VIAL IVP STA (13:38)
[2023-12-07] MEDS ORDERED: SODIUM CHLORIDE 0.9% 500 ML 500 ML IV ONE (13:38)
[2023-12-07 14:06] LABS: Basophils % (A) 1 %; Eosinophils % (A) 1 %; HCT 33.3 % (39.0-53.0); HGB 11.6 gm/dL (13.0-17.5); Lymphocytes % (A) 30 %; MCH 34.6 pg (25.0-35.0); MCHC 34.8 g/dL (31.0-37.0); MCV 99.6 fL (80.0-100.0); Macrocytosis Slight; Mean Platelet Volume 10.2; Monocytes # (A) 0.4 k/uL (0-1.0); Monocytes % (A) 13 %; Neutrophils # (A) 1.7 k/uL (1.3-7.7); Neutrophils % (A) 53 %; RBC 3.35 m/uL (4.30-5.90); RDW 15.3 % (11.5-15.5); WBC 3.2 k/uL (3.8-10.6)
[2023-12-07 14:18] LABS: ALT 24 U/L (4-49); AST 31 U/L (17-59); African American GFR (CKD) 67 (>60 ml/min/1.73 sqM); Albumin 3.6 g/dL (3.5-5.0); Alkaline Phosphatase 120 U/L (38-126); Anion Gap 6 mmol/L; Blood Urea Nitrogen 28 mg/dL (9-20); Calcium 8.9 mg/dL (8.4-10.2); Carbon Dioxide 23 mmol/L (22-30); Chloride 110 mmol/L (98-107); Glucose 106 mg/dL (74-99); Magnesium 2.1 mg/dL (1.6-2.3); Non-African American GFR(CKD) 58 (>60 ml/min/1.73 sqM); Potassium 4.7 mmol/L (3.5-5.1); Sodium 139 mmol/L (137-145); Total Bilirubin 1.1 mg/dL (0.2-1.3); Total Protein 6.8 g/dL (6.3-8.2)
[2023-12-07 14:47] LABS: Platelet Count 90 k/uL (150-450)
--- NOTE | 2023-12-07 16:14 | CT ---
EXAMINATION TYPE: CT abdomen pelvis w con DATE OF EXAM: 12/07/2023 COMPARISON: 10/24/2023 INDICATION: abdominal pain, weight loss DLP: 656.7 mGycm, Automated exposure control for dose reduction was used. CONTRAST: 100 mL of Isovue 300. Study performed without Oral Contrast TECHNIQUE: Axial images were obtained from above the diaphragm to the pubic rami in the axial plane a t 5 mm thick sections. Reconstructed images are reviewed on the computer in the coronal plane. FINDINGS: Limited CT sections are obtained the lung bases. Emphysematous changes are present. Pulmonary fibros is may be present.. There is a moderate-sized hiatal hernia present. CT ABDOMEN: Liver: Normal Spleen: Normal Pancreas: Normal Adrenal glands: The adrenal glands are normal. Gallbladder: Surgically absent Kidneys: No masses are evident. No hydronephrosis is present. There is a superior pole left renal c yst measuring 2.8 cm. Delayed images were obtained through the kidneys, which remain unremarkable. Aorta: Vascular calcification is within the aorta. There is abdominal aortic fusiform prominence wit h an AP diameter of 2.8 cm. The common iliac vessels are prominent. Inferior vena cava: Normal. CT PELVIS: Right hip prosthesis causes beam hardening artifact and limitation of the lower pelvis pablo luation. Loops of bowel within the abdomen and pelvis are normal. This study is without oral contrast limi ting bowel evaluation. Appendix: Not identified. No dilated tubular structure or inflammatory change is evident. Urinary bladder: Normal. Genitourinary structures: Prostate is somewhat prominent Osseous structures: No suspicious lytic or sclerotic lesions are evident. Facet degenerative changes are within the lumbar spine. Right hip prosthesis causes beam hardening artifact of the lower pelvis. IMPRESSION: 1. Fusiform prominence abdominal aorta and common iliac vessels. 2. Right renal cyst 3. Hiatal hernia.
== END 2023-12-07 17:22 | disposition home or self-care (01) ==
LOC: EC 11:31
DX: D64.9 Anemia, unspecified (principal); K44.9 Diaphragmatic hernia without obstruction or gangrene; K21.9 Gastro-esophageal reflux disease without esophagitis; Z20.822 Contact with and (suspected) exposure to COVID-19; Z79.899 Other long term (current) drug therapy; Z87.891 Personal history of nicotine dependence; Z90.49 Acquired absence of other specified parts of digestive tract
CPT/HCPCS: 36415; 93005; 80053; 83605; 83735; 84484; 85025; 87636; 71046; 74177; 99285; 96374; 96375; J2405; J3490; Q9967

== ENCOUNTER 2023-12-30 08:13 | Emergency (ER) | payer MEDICARE ==
[2023-12-30 08:45] VITALS: RESP 18
[2023-12-30] MEDS: KETOROLAC 15 MG/ML 1 ML VIAL IVP STA (08:56)
--- NOTE | 2023-12-30 09:02 | ED ---
General Adult HPI - General Chief complaint: Weakness Stated complaint: Weakness, hernia Time Seen by Provider: 12/30/23 08:15 Source: patient, RN notes reviewed, old records reviewed Mode of arrival: EMS Limitations: no limitations - History of Present Illness Initial comments: Is an 88-year-old male who presents to the emergency department complaining of lower abdominal pain which she states has been ongoing for months. Patient also complains of some pain at the tip of his penis. End patient states he believes he is having some spasms in his legs. Patient states the abdominal pain and the leg pain have been on going for months it just got worse today. Patient denies any dysuria or hematuria. Patient denies any fever chills per patient has any back pain. Patient [place] any chest pain difficulty breathing or shortness of breath. Patient has had prostate issues in the past where he had urinary retention. He has had surgery for that with Dr. Perez - Related Data Home Medications Medication Instructions Recorded Confirmed Pantoprazole Sodium 40 mg PO BID PRN 08/22/18 12/07/23 Dicyclomine [Bentyl] 20 mg PO QID 03/25/21 12/07/23 Levothyroxine Sodium [Synthroid] 50 mcg PO DAILY 12/07/23 12/07/23 Tamsulosin [Flomax] 0.4 mg PO DAILY 12/07/23 12/07/23 Previous Rx's Medication Instructions Recorded Omeprazole [PriLOSEC] 20 mg PO AC-BRKFST 30 Days #30 cap 12/07/23 Allergies Allergy/AdvReac Type Severity Reaction Status Date / Time No Known Allergies Allergy Verified 12/30/23 08:20 Review of Systems ROS Statement: Those systems with pertinent positive or pertinent negative responses have been documented in the HPI. ROS Other: All systems not noted in ROS Statement are negative. 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 small bowel obstruction History of Any Multi-Drug Resistant Organisms: None Reported Past Surgical History: Adenoidectomy, Bowel Resection, Cholecystectomy, Joint Replacement, Tonsillectomy Additional Past Surgical History / Comment(s): Bowel resection, RT HIP replacement, Past Anesthesia/Blood Transfusion Reactions: No Reported Reaction Past Psychological History: No Psychological Hx Reported Smoking Status: Former smoker Past Alcohol Use History: None Reported Past Drug Use History: None Reported - Past Family History Father Family Medical History: No Reported History Additional Family Medical History / Comment(s): Father was healthy and lived into his 90's. Mother Family Medical History: No Reported History Additional Family Medical History / Comment(s): . General Exam - General Exam Comments Initial Comments: GENERAL: Patient is well-developed and well-nourished. Patient is nontoxic and well- hydrated and is in moderate distress. ENT: Neck is soft and supple. No significant lymphadenopathy is noted. Oropharynx is clear. Moist mucous membranes. Neck has full range of motion without eliciting any pain. EYES: The sclera were anicteric and conjunctiva were pink and moist. Extraocular movements were intact and pupils were equal round and reactive to light. Eyelids were unremarkable. PULMONARY: Unlabored respirations. Good breath sounds bilaterally. No audible rales rhonchi or wheezing was noted. CARDIOVASCULAR: There is a regular rate and rhythm without any murmurs gallops or rubs. Femoral pulses are equal bilaterally ABDOMEN: Lower abdomen is distended. Lower abdomen is also painful to palpation GENITALIA: Tip of the penis is excoriated and is tender to palpation the shaft of the penis is nontender swollen or there are no lesions. SKIN: Skin is clear with no lesions or rashes and otherwise unremarkable. NEUROLOGIC: Patient is alert and oriented x3. Cranial nerves II through XII are grossly intact. Motor and sensory are also intact. Normal speech, volume and content. Symmetrical smile. MUSCULOSKELETAL: Normal extremities with adequate strength and full range of motion. No lower extremity swelling or edema. No calf tenderness. LYMPHATICS: No significant lymphadenopathy is noted PSYCHIATRIC: Normal psychiatric evaluation. Limitations: no limitations Course Vital Signs 12/30/23 08:16 Temperature 97 F L Pulse Rate 65 Respiratory 18 Rate Blood Pressure 115/73 O2 Sat by Pulse 98 Oximetry Medical Decision Making - Medical Decision Making Was pt. sent in by a medical professional or institution (, [facility], [facility], urgent care, hospital, or care home...) When possible be specific @ -No Did you speak to anyone other than the patient for history (EMS, parent, family, police, friend...)? What history was obtained from this source @ -Daughter and gave quite a bit of the history because the patient was in quite a bit of pain at that time Did you review nursing and triage notes (agree or disagree)? Why? @ -I reviewed and agree with nursing and triage notes Were old charts reviewed (outside hosp., previous admission, EMS record, old EKG, old radiological studies, urgent care reports/EKG's, care home records)? Report findings @ -I reviewed prior charts and prior lab work on this patient Differential Diagnosis (chest pain, altered mental status, abdominal pain women, abdominal pain men, vaginal bleeding, weakness, fever, dyspnea, syncope, headache, dizziness, GI bleed, back pain, seizure, CVA, palpatations, mental health, musculoskeletal)? @ -Differential Abdominal Pain Men: Appendicitis, cholecystitis, diverticulosis, ischemic bowel, pancreatitis, hep atitis, UTI, gastroenteritis, AAA, incarcerated hernia, bowel obstruction, constipation, inflammatory bowel, hepatitis, peptic ulcer disease, splenic infarction, perforated viscus, testicular torsion, this is not meant to be an all-inclusive list EKG interpreted by me (3pts min.). @ -As above X-rays interpreted by me (1pt min.). @ -None done CT interpreted by me (1pt min.). @ -None done U/S interpreted by me (1pt. min.). @ -A bedside bladder scan was done and showed over 1000 cc of urine in his bladder What testing was considered but not performed or refused? (CT, X-rays, U/S, labs)? Why? @ -None What meds were considered but not given or refused? Why? @ -None Did you discuss the management of the patient with other professionals (professionals i.e. , PA, [facility], lab, RT, psych nurse, drug abuse social worker, sheep clipper, teacher, first officer and flight instructor, keycase assembler)? Give summary @ -No Was smoking cessation discussed for >3mins.? @ -No Was critical care preformed (if so, how long)? @ -No Were there social determinants of health that impacted care today? How? (Homelessness, low income, unemployed, alcoholism, drug addiction, transportation, low edu. Level, literacy, decrease access to med. care, fci, r ehab)? @ -No Was there de-escalation of care discussed even if they declined (Discuss DNR or withdrawal of care, Hospice)? DNR status @ -No What co-morbidities impacted this encounter? (DM, HTN, Smoking, COPD, CAD, Cancer, CVA, ARF, Chemo, Hep., AIDS, mental health diagnosis, sleep apnea, morbid obesity)? @ -None Was patient admitted / discharged? Hospital course, mention meds given and route, prescriptions, significant lab abnormalities, going to OR and other pertinent info. @ -Patient had a Kwan catheter placed and was feeling considerably better after this he had no complaints and will follow-up with Dr. Ng Undiagnosed new problem with uncertain prognosis? @ -No Drug Therapy requiring intensive monitoring for toxicity (Heparin, Nitro, Insulin, Cardizem)? @ -No Were any procedures done? @ -No Diagnosis/symptom? @ -Urinary retention acute Acute, or Chronic, or Acute on Chronic? @ -Acute Uncomplicated (without systemic symptoms) or Complicated (systemic symptoms)? @ -Complicated Side effects of treatment? @ -No Exacerbation, Progression, or Severe Exacerbation? @ -No Poses a threat to life or bodily function? How? (Chest pain, [place], AR, pneumonia, PE, COPD, DKA, ARF, appy, cholecystitis, CVA, Diverticulitis, Homicidal, Suicidal, threat to staff... and all critical care pts) @ -No - Lab Data Result diagrams: 12/30/23 09:02 12/30/23 09:02 Lab Results 12/30/23 12/30/23 12/30/23 Range/Units 09:02 09:02 09:02 WBC 5.5 (3.8-10.6) k/uL RBC 3.21 L (4.30-5.90) m/uL Hgb 11.1 L (13.0-17.5) gm/dL Hct 32.4 L (39.0-53.0) % MCV 101.0 H (80.0-100.0) fL MCH 34.6 (25.0-35.0) pg MCHC 34.2 (31.0-37.0) g/dL RDW 16.6 H (11.5-15.5) % Plt Count 121 L (150-450) k/uL MPV 10.4 Neutrophils % 46 % Lymphocytes % 39 % Monocytes % 12 % Eosinophils % 1 % Basophils % 0 % Neutrophils # 2.5 (1.3-7.7) k/uL Lymphocytes # 2.1 (1.0-4.8) k/uL Monocytes # 0.7 (0-1.0) k/uL Eosinophils # 0.0 (0-0.7) k/uL Basophils # 0.0 (0-0.2) k/uL Anisocytosis Slight Macrocytosis Slight Sodium 136 L (137-145) mmol/L Potassium 4.3 (3.5-5.1) mmol/L Chloride 108 H (98-107) mmol/L Carbon Dioxide 21 L (22-30) mmol/L Anion Gap 7 mmol/L BUN 33 H (9-20) mg/dL Creatinine 0.94 (0.66-1.25) mg/dL Est GFR (CKD-EPI)AfAm 84 (>60 ml/min/1.73 sqM) Est GFR (CKD-EPI)NonAf 72 (>60 ml/min/1.73 sqM) Glucose 108 H (74-99) mg/dL Calcium 8.8 (8.4-10.2) mg/dL Magnesium 2.1 (1.6-2.3) mg/dL Total Bilirubin 1.3 (0.2-1.3) mg/dL AST 26 (17-59) U/L ALT 23 (4-49) U/L Alkaline Phosphatase 97 (38-126) U/L Total Protein 6.2 L (6.3-8.2) g/dL Albumin 3.4 L (3.5-5.0) g/dL Urine Color Yellow Urine Appearance Clear (Clear) Urine pH 6.0 (5.0-8.0) Ur Specific [place] 1.018 (1.001-1.035) Urine Protein Negative (Negative) Urine Glucose (UA) Negative (Negative) Urine Ketones Negative (Negative) Urine Blood Negative (Negative) Urine Nitrite Negative (Negative) Urine Bilirubin Negative (Negative) Urine Urobilinogen <2.0 (<2.0) mg/dL Ur Leukocyte Esterase Negative (Negative) Disposition Clinical Impression: Urinary retention Disposition: HOME SELF-CARE Condition: Good Instructions (If sedation given, give patient instructions): Urinary Retention in Men (ED) Is patient prescribed a controlled substance at d/c from ED?: No Referrals: Kwan Perez MD [STAFF PHYSICIAN] - 1-2 days Time of Disposition: 10:24
[2023-12-30 09:12] LABS: Anisocytosis Slight; Basophils % (A) 0 %; Eosinophils % (A) 1 %; HCT 32.4 % (39.0-53.0); HGB 11.1 gm/dL (13.0-17.5); Lymphocytes # (A) 2.1 k/uL (1.0-4.8); Lymphocytes % (A) 39 %; MCH 34.6 pg (25.0-35.0); MCHC 34.2 g/dL (31.0-37.0); Macrocytosis Slight; Mean Platelet Volume 10.4; Monocytes # (A) 0.7 k/uL (0-1.0); Monocytes % (A) 12 %; Neutrophils # (A) 2.5 k/uL (1.3-7.7); Neutrophils % (A) 46 %; Platelet Count 121 k/uL (150-450); RBC 3.21 m/uL (4.30-5.90); RDW 16.6 % (11.5-15.5); WBC 5.5 k/uL (3.8-10.6)
[2023-12-30 09:35] LABS: ALT 23 U/L (4-49); AST 26 U/L (17-59); African American GFR (CKD) 84 (>60 ml/min/1.73 sqM); Albumin 3.4 g/dL (3.5-5.0); Alkaline Phosphatase 97 U/L (38-126); Anion Gap 7 mmol/L; Blood Urea Nitrogen 33 mg/dL (9-20); Calcium 8.8 mg/dL (8.4-10.2); Carbon Dioxide 21 mmol/L (22-30); Chloride 108 mmol/L (98-107); Glucose 108 mg/dL (74-99); Magnesium 2.1 mg/dL (1.6-2.3); Non-African American GFR(CKD) 72 (>60 ml/min/1.73 sqM); Potassium 4.3 mmol/L (3.5-5.1); Sodium 136 mmol/L (137-145); Total Bilirubin 1.3 mg/dL (0.2-1.3); Total Protein 6.2 g/dL (6.3-8.2)
[2023-12-30 09:40] LABS: Appearance,Urine Clear (Clear); Bilirubin,Urine Negative (Negative); Blood,Urine Negative (Negative); Color,Urine Yellow; Glucose,Urine (UA) Negative (Negative); Ketones,Urine Negative (Negative); Leukocyte Esterase,Urine Negative (Negative); Nitrite,Urine Negative (Negative); Protein,Urine Negative (Negative); Specific Gravity,Urine 1.018 (1.001-1.035); Urobilinogen,Urine <2.0 mg/dL (<2.0)
[2023-12-30 11:28] VITALS: BP 128/84; PULSE 60; TEMP 98.1
== END 2023-12-30 10:45 | disposition home or self-care (01) ==
LOC: EC 08:13
DX: R33.9 Retention of urine, unspecified (principal); K21.9 Gastro-esophageal reflux disease without esophagitis; Z87.891 Personal history of nicotine dependence; Z79.899 Other long term (current) drug therapy
CPT/HCPCS: 36415; 80053; 83735; 85025; 81003; 99285; 96374; 51702; J1885